=== PATIENT | male | born 1955 | race Caucasian/White ===

== ENCOUNTER 2019-06-05 06:16 | Emergency (ER) | payer BC, SELFPAY ==
[2019-06-05 06:18] VITALS: BP 92/68; PULSE 70; RESP 14; TEMP 36.2; O2SAT 95; BMI 22.4
--- NOTE | 2019-06-05 06:37 | EKG12_ITS ---
Test Reason : SYNCOPE Blood Pressure : / mmHG Vent. Rate : 065 BPM Atrial Rate : 065 BPM P-R Int : 150 ms QRS Dur : 102 ms QT Int : 428 ms P-R-T Axes : 054 015 049 degrees QTc Int : 445 ms Normal sinus rhythm Normal ECG Confirmed by ROSANNA MCARTHUR, AD ([id number]), script editor SANFORD VILLANUEVA ([id number]) on 06/07/2019 9:01:51 AM Referred By: PAPITO Confirmed By:AD MARTE MD
--- NOTE | 2019-06-05 06:37 | ED.DCSUM_ITS ---
History of Present Illness Chief Complaint: Syncope Narrative: This patient is a 64-year-old male who presents with near syncope. He states he got up to go to the bathroom and felt dizzy and became diaphoretic. He fell. He did not completely lose consciousness. There was no associated chest pain or shortness of breath. Currently he is completely asymptomatic. He states he had one prior similar episode several years ago which was ultimately attributed to dehydration and stress. He has had no recent illness. He denies fevers vomiting diarrhea. He has had normal oral intake. He is on 2 medications for hypertension. He states that when he was prescribed those he was much heavier and has lost a lot of weight so thinks his current medications may just be too much. Past Medical History - Allergies and Home Meds Allergies/Adverse Reactions: Allergies No Known Allergies Allergy (Verified 06/05/19 06:18) Primary Care Physician: Gerard Penny MD [Primary Care Provider] - Past Medical History: - - Hypertension Smoking Status: Never smoker - Family History Maternal Family History: Reports: Heart Disease Review of Systems All systems negative except as indicated General: Reports: Sweats. Denies: Fever Cardiovascular: Reports: - - Dizziness/near syncope. Denies: Chest pain Respiratory: Denies: Dyspnea Gastrointestinal: Denies: Nausea, Vomiting Musculoskeletal: Denies: Myalgias, Arthralgias Skin: Denies: Rash Neurological: Denies: Headache Physical Exam Vital Signs/Narrative: Vital Signs Temp Pulse Resp BP Pulse Ox 06/05/19 06:18 97.2 F L 70 14 92/68 95 Inital Vital Signs reviewed: Yes General: Well nourished, Well developed Head: Normocephalic Eyes: EOMI ENT: Moist mucous membranes Neck: Supple Cardiovascular: Regular rate, Regular rhythm Respiratory: No distress, CTA bilaterally Abdomen: Soft, Nontender Skin: Normal color Neurological: Alert Psychological: Normal affect Diagnostic/Tx/Re-eval Laboratory Results 06/05/19 06/05/19 06:20 06:20 WBC 8.6 RBC 4.99 Hgb 14.1 Hct 43.2 MCV 86.6 MCH 28.3 MCHC 32.6 RDW Std Deviation 45.2 H RDW Coeff of Deny 14.4 Plt Count 225 MPV 9.7 Immature Gran % (Auto) 0.100 Neut % (Auto) 36.1 L Lymph % (Auto) 51.2 H [place] % (Auto) 6.7 Eos % (Auto) 4.7 Baso % (Auto) 1.2 H Absolute Neuts (auto) 3.1 Absolute Lymphs (auto) 4.38 Nucleated RBC % 0 Sodium 145 Potassium 3.8 Chloride 111 H Carbon Dioxide 25.0 Anion Gap 9 BUN 11 Creatinine 0.80 Estim Creat Clear Calc 100.39 Est GFR (MDRD) Af Amer 125 Est GFR (MDRD) Non-Af 103 BUN/Creatinine Ratio 13.7 Glucose 123 H Calcium 8.4 L Troponin I < 0.015 - Medical Decision Making Labs are normal. EKG showed normal sinus rhythm at a rate of 65 with no ischemic changes. Patient had a similar presentation in 2014 although he had multiple syncopal episodes at that time. He was admitted here at laboratory studies and stress testing all of which were normal. Currently he is completely asymptomatic. His orthostatic vital signs were negative. Patient does note that since being started on the nifedipine and atenolol he has lost a significant amount of weight and believes that this is likely medication related and I do think this is the most likely explanation. I put a page out to Dr. Portillo who is covering for the patient's primary care physician. And her back yet but will have patient stop his nifedipine for now. Patient was advised to follow-up in the office. He understands return for new or worsening symptoms. He was able to ambulate without any difficulty or recurrence of symptoms. ED Disposition - Plan for ED Patient: Disposition: Home or Assisted Living Diagnosis: Near syncope Instructions: NEAR SYNCOPE, Unknown Referrals: Gerard Penny MD [Primary Care Provider] - Additional Instructions: Stop nifedepine. Follow up with your doctor as soon as possible. Return for new or worsening symptoms.
[2019-06-05] MEDS: 0.9% Normal Saline 1,000 ML 999 ML IV (06:59)
[2019-06-05 07:02] VITALS: BP 105/64; BP 108/67; BP 115/76; PULSE 70; PULSE 75; PULSE 80
[2019-06-05 07:03] LABS: Absolute Lymphocyte Count 4.38 X10^3/uL (0.83-4.51); Absolute Neutrophil Count 3.1 X10^3/uL (2.0-7.7); Basophil% 1.2 % (0-1); Eosinophils% 4.7 % (0-5); Hematocrit 43.2 % (40-54); Hemoglobin 14.1 g/dL (13.0-16.5); Lymphocyte # 4.38 X10^3/ul (4.0); Lymphocyte % 51.2 % (19-41); Mean Corp Hgb Conc 32.6 g/dL (32-36); Mean Corpuscular Hgb 28.3 pg (27.0-32.0); Mean Corpuscular Volume 86.6 fL (80-94); Mean Platelet Vol. 9.7 fl (6.2-12.0); Monocyte# 0.57 X10^3/uL; Monocyte% 6.7 % (0-10); NRBC Flagged by Analyzer 0 % (0-5); Neutrophil # 3.09 X10^3/uL (2.7-7.7); Neutrophil % 36.1 % (47-70); Platelet Count 225 K/mm3 (150-450); RBC Distribution Width CV 14.4 % (11.6-14.6); RBC Distribution Width SD 45.2 fl (35.1-43.9); Red Blood Count 4.99 M/mm3 (4.6-6.2); White Blood Count 8.6 K/mm3 (4.4-11.0)
[2019-06-05 07:20] LABS: Anion Gap 9 (5-15); BUN 11 mg/dL (7-18); BUN/Creat Ratio 13.7 RATIO (10-20); Calcium,Total 8.4 mg/dL (8.5-10.1); Chloride 111 mmol/L (98-107); EST Glomerular Filtration Rate 103 mL/min (>60); Est Glom Filt Rate - Afr Amer 125 mL/min (>60); Estimated Creatinine Clearance 100.39 ml/min; Glucose 123 mg/dL (74-106); Potassium 3.8 mmol/L (3.5-5.1); Sodium Level 145 mmol/L (136-145)
[2019-06-05 07:58] VITALS: BP 122/77; PULSE 64; RESP 15; O2SAT 97
== END 2019-06-05 07:59 | disposition home or self-care (01) ==
PROVIDERS: Emergency Provider Emergency Medicine; Family Provider Family Medicine; PCP Family Medicine
DX: R55 Syncope and collapse (principal); I10 Essential (primary) hypertension; Z79.899 Other long term (current) drug therapy
CPT/HCPCS: 80048; 84484; 85025; 93005; 96360; 99285; J7030; A4216

== ENCOUNTER 2019-08-02 10:04 | Inpatient (IN) | payer BC, SELFPAY ==
[2019-07-21 12:59] VITALS: BP 139/87; PULSE 53; RESP 16; TEMP 36.6; O2SAT 98; BMI 22.0
[2019-07-21 13:47] LABS: Absolute Neutrophil Count 4.2 X10^3/uL (2.0-7.7); Basophil# 0.08 X10^3/uL; Basophil% 1.1 % (0-1); Eosinophil# 0.08 X10^3/uL; Eosinophils% 1.1 % (0-5); Hematocrit 44.9 % (40-54); Hemoglobin 14.6 g/dL (13.0-16.5); Lymphocyte % 35.7 % (19-41); Mean Corp Hgb Conc 32.5 g/dL (32-36); Mean Corpuscular Hgb 28.3 pg (27.0-32.0); Mean Corpuscular Volume 87.2 fL (80-94); Mean Platelet Vol. 9.9 fl (6.2-12.0); Monocyte# 0.51 X10^3/uL; Monocyte% 6.7 % (0-10); NRBC Flagged by Analyzer 0 % (0-5); Neutrophil # 4.19 X10^3/uL (2.7-7.7); Neutrophil % 55.3 % (47-70); Platelet Count 245 K/mm3 (150-450); RBC Distribution Width CV 14.3 % (11.6-14.6); RBC Distribution Width SD 45.2 fl (35.1-43.9); Red Blood Count 5.15 M/mm3 (4.6-6.2); White Blood Count 7.6 K/mm3 (4.4-11.0)
[2019-07-21 14:19] LABS: Anion Gap 5 (5-15); BUN 13 mg/dL (7-18); BUN/Creat Ratio 16.1 RATIO (10-20); Calcium,Total 9.7 mg/dL (8.5-10.1); Chloride 105 mmol/L (98-107); Creatinine, Serum 0.81 mg/dL (0.70-1.30); EST Glomerular Filtration Rate 102 mL/min (>60); Est Glom Filt Rate - Afr Amer 124 mL/min (>60); Estimated Creatinine Clearance 97.17 ml/min; Glucose 98 mg/dL (74-106); Potassium 4.8 mmol/L (3.5-5.1); Sodium Level 138 mmol/L (136-145)
[2019-08-02] VITALS (13 sets, daily range): BP systolic 92–136; BP diastolic 54–89; PULSE 48–67; RESP 16–18; TEMP 35.7–36.6; O2SAT 98–100; BMI 22.0
[2019-08-02 09:05] LABS: Bedside Glucose 92 mg/dL (70-110)
[2019-08-02] MEDS: Lactated Ringers 1,000 ML 100 ML IV ×2 (09:10→14:37)
[2019-08-02] MEDS: Lactated Ringers 1,000 ML 999 ML IV (09:11)
[2019-08-02] MEDS: Magnesium Sulfate 4gm/100mL 4 GM/100 ML IV.SOLN. IV (09:12)
[2019-08-02] MEDS: Gabapentin 600 MG Tablet PO (09:17)
[2019-08-02] MEDS: Acetaminophen 500 MG Tablet 1000 MG PO ×3 (09:17→20:48)
[2019-08-02] MEDS: Cefazolin 2 GM in 0.9% Normal Saline 100 ML IV (10:10)
--- NOTE | 2019-08-02 10:15 | KNEE_PTH ---
PATIENT: NASIM GAVIN LOC: MS3 U#:[id number] AGE/SX: 64/M ROOM: MS305 RE08/02/[address]: Dr. Deyvi Drummond DO : 1955 BED: 1 DIS: 08/04/2019 SPEC #: [id number] RECD: 08/02/19 12:17 STATUS: NOA REQ #: [id number] FREDIS: 08/02/19 10:[address]: Deyvi Drummond DEPT: SURGICAL PATHOLOGY RECD BY: Adriana Onofre ENTERED: 08/02/19 13:38 SP TYPE: TOTAL KNEE OTHR DR: Dr. Gerard Penny MD Tissues: Knee, NOS Procedures: Decalcification bone/plaque Surgery Specimen Level IV HEADER OPERATION: ERAS, total knee replacement PRE-OP DIAGNOSIS: Unilateral post traumatic osteoarthritis TISSUE SUBMITTED: Bone and soft tissue, left knee MICROSCOPIC DIAGNOSIS Bone of left knee, total knee resection: Severe degenerative joint disease. AM:ritu 08/05/19 MICROSCOPIC DESCRIPTION Slides are reviewed. GROSS DESCRIPTION Received is one container designated bone and soft tissue left knee. The specimen consists of multiple fragments of -yellow bone measuring in aggregate 11 x 11 x 3 cm. No soft tissue is identified. A number of bony fragments contain articular surfaces consistent with tibial plateau and femoral condyle and displaying prominent osteophyte formation, eburnation, and bone erosion. Sustainability Coach sections are submitted one cassette after decalcification. / SJ:ritu 08/02/19 TC:5 CPT: 48762, 35065
--- NOTE | 2019-08-02 11:21 | PCM.OPRPT ---
Report of Operation Date of Procedure: 08/02/19 Pre-Operative Diagnosis: OA left knee Post-Operative Diagnosis: same Surgery/Procedure Performed:: Left TKR Description of Surgical Findings:: Primary Surgeon/Physician: Deyvi Drummond chef instructor: Faisal Grewal PA-C chef instructor: Pre-Operative Diagnosis: OA left knee Post-Operative Diagnosis: same Surgery/Procedure Performed: Left TKR Estimated Blood Loss: 25 cc Specimen's Removed: bone Type of Anesthesia: spinal ASA Class: 2 Implants: [Villa Triathlon size 7 press fit CR femur, size 7 press-fit tibia, 9 mm polyethylene, 32 mm press-fit patella] Indications: Patient has severe end-stage osteoarthritis diagnosed via x-rays in the knee. They have failed all forms of conservative measures including activity modification, injections, anti-inflammatories, use of assistive device. The patient has pain that affects on a daily basis and prevents him from doing things that they enjoyed. They have elected to undergo the above procedure. The risks of the procedure were discussed at length and their questions were answered. Procedure Description: The patient was greeted in the preoperative area. The [left ] knee was then marked with a surgical marker. Patient was then taken to or [address] 2. They were administered a dose of antibiotics as well as tranexamic acid. Once adequate anesthesia was obtained and airway was secured to placed in supine position on the operating room table. A well-padded tourniquet was placed on the affected extremity. Leg was then prepped and draped in the usual sterile fashion from the knee down. Ioban was used on the skin. Surgical timeout was then performed and confirmed with all present. Six-inch Esmarch was used to examine the limb and tourniquet was then inflated to 250 mmHg. A longitudinal incision was then planned and carried out in the anterior aspect of the knee. The dissection was then carried the length of the incision the extensor mechanism was identified. Standard medial parapatellar arthrotomy was then performed revealing severe eburnation of bone and periarticular osteophytes. There is complete loss of cartilage especially in the medial compartment with varus alignment. Anterior fat pad was removed for visualization purposes and the anterior medial aspect of the tibia was skeletonized for exposure to the knee. The knee was then flexed the patella was inverted. Opening reamer was then used in the femur approximately 1 cm anterior to the attachment of the PCL. The intramedullary valgus wand was then placed in the femur set at 5? of valgus. The distal femoral cutting jig was then applied to the femur with anticipated resection of approximately 8 mm. This was then made with a oscillating saw. The sizing guide was then placed referencing off the posterior condyles and also reference off the epicondylar axis. This was measured and the appropriate size 4-in-1 cutting jig was then applied to the distal femur. Anterior posterior cuts were made followed by the anterior and posterior chamfer cuts. These bony pieces and fragments were removed and placed on the back table. Posterior retractor was then utilized and the tibia was subluxed anteriorly. Intramedullary tibial alignment jig was then applied to the tibia referencing off the medial one third of the tibial tubercle the anterior tibial spine the middle aspect of the tibiotalar joint. Also reference off patient's [place] slope. The tibial cutting jig was then pinned with anticipated resection of 2 mm off of the deficient medial tibial condyle. This cut was made with the oscillating saw. Once this was complete a laminar liability claims representative was utilized in both medial lateral meniscus were removed and a posterior capsular osteophytes were also removed. Posterior capsule release was performed in the posterior capsule as well as the geniculate arteries are treated with the aqua Charo. The tibia was incised and the appropriate sized tibial tray was then pinned. The femoral trial was then placed and the knee was trialed. Full flexion-extension were easily achieved. The knee seemed to balance quite nicely. Any remaining osteophytes were removed at this time. Once this was complete the patella was everted and the [place] patella reaming device was then utilized the patella was then placed in the appropriate jig and reamer was then used to remove approximately 9 mm of the undersurface of the patella. A soft tissue remaining was in the way was removed and patella trial was then placed listed maintain excellent tracking using the no thumbs technique. The tibial tray at this point was punched to accommodate the fins of the final implant. The trial components were removed and the knee was copiously irrigated. Did use a cocktail of injection for postoperative pain control. The final components were then impacted in the standard fashion. The tourniquet was deflated and hemostasis was perfect with Bovie cautery as well as the aqua Manus. Needle is once again trialed with different size polyethylenes to ensure the full range of motion was achieved as well as excellent balancing ligamentously was achieved. At this point the knee was copiously irrigated. Final implant was then inserted locking mechanism was engaged and confirmed to be locked. The arthrotomy was then closed with #1 Vicryl aggravate type fashion interrupted. Subcutaneous tissue was closed with 0 Vicryl and surgical yovani were placed in the skin. A occlusive silver impregnated dressing was then applied followed by well-padded sterile dressing secured with an Jono wrap. The patient was taken to the PACU in stable condition. No complications known at this time. Postoperatively we will maintain standard total knee postoperative protocol. The use of the physician medical clerical assistant was integral during this procedure. They assisted with positioning placement of the tourniquet retracting closure and placement of the dressing. The procedure would have been much more difficult without their expertise and assistance chef instructor: Faisal Grewal Type of Anesthesia:: Spinal Anesthesiologist: Boni Esposito Specimen's removed: bone - Admit VTE Documentation VTE Present on Admission: No VTE Mechan Device Prophylaxis: SCD's, Thigh High MINDI Hose VTE Pharm Prophylaxis ordered?: Yes
[2019-08-02] MEDS: Cefazolin 1 GM/50 ML BAG IV (17:19)
[2019-08-02] MEDS: Senna/Docusate Sodium 1 Tablet 2 TABLET PO (20:48)
[2019-08-02] MEDS: oxyCODONE 5 MG Tablet PO ×2 (22:41→23:58)
[2019-08-03] VITALS (8 sets, daily range): BP systolic 87–123; BP diastolic 51–95; PULSE 57–115; RESP 16–20; TEMP 36.6–38.2; O2SAT 94–97
[2019-08-03] MEDS: Cefazolin 1 GM/50 ML BAG IV (01:25)
[2019-08-03] MEDS: Acetaminophen 500 MG Tablet 1000 MG PO ×3 (05:02→21:13)
--- NOTE | 2019-08-03 05:18 | NURSING ---
PT NOTED TO BE CONFUSED OVERNIGHT. CONTINUES TO BELIEVE HE IS AT HOME IN SPITE OF FREQUENT REORIENTATION. CONTINUES TO CHOOSE NOT TO CALL FOR ASSISTANCE WHEN GETTING OUT OF BED. REPEATEDLY THOUGHT IT WAS TIME FOR BREAKFAST OVERNIGHT. ASKING TO USE RESTROOM WITHIN 5M OF BEING TAKEN TO RESTROOM; STATES I FORGOT I ALREADY WENT. RE-ORIENTED EACH TIME. WILL CONTINUE TO MONITOR.
[2019-08-03 06:20] LABS: Hematocrit 37.4 % (40-54); Hemoglobin 11.7 g/dL (13.0-16.5); Mean Corp Hgb Conc 31.3 g/dL (32-36); Mean Corpuscular Hgb 27.7 pg (27.0-32.0); Mean Corpuscular Volume 88.4 fL (80-94); Mean Platelet Vol. 9.7 fl (6.2-12.0); Platelet Count 197 K/mm3 (150-450); RBC Distribution Width CV 14.6 % (11.6-14.6); RBC Distribution Width SD 46.4 fl (35.1-43.9); Red Blood Count 4.23 M/mm3 (4.6-6.2)
[2019-08-03 06:52] LABS: Anion Gap 3 (5-15); BUN 15 mg/dL (7-18); BUN/Creat Ratio 20.1 RATIO (10-20); Calcium,Total 8.2 mg/dL (8.5-10.1); Chloride 110 mmol/L (98-107); Creatinine, Serum 0.75 mg/dL (0.70-1.30); EST Glomerular Filtration Rate 112 mL/min (>60); Est Glom Filt Rate - Afr Amer 136 mL/min (>60); Estimated Creatinine Clearance 104.95 ml/min; Glucose 104 mg/dL (74-106); Potassium 4.7 mmol/L (3.5-5.1); Sodium Level 140 mmol/L (136-145)
--- NOTE | 2019-08-03 07:57 | PN.ORTHO_ITS ---
Subjective: Patient sitting at bedside, states pain is very well managed. States he does have increasing pain from today. Patient denies chest pain, shortness of breath, calf pain, nausea vomiting. Patient has no other complaints ready for discharge home today. Objective: Patient sitting comfortably in the chair next to the bed. No respiratory distress. Speaking full sentences. Patient's dressing is clean dry intact. Negative signs and symptoms of DVT. Patient has good plantar flexion dorsiflexion of the ankle and foot of the operative leg. Patient is hypertensive, did have a drop in blood pressure and increase in pulse by approximately 30 bpm coming from a sitting standing position. Patient however remained asymptomatic. Patient labs are otherwise normal limits - Physical Exam Vitals/I&O's: Vital Signs Temp Pulse Resp BP Pulse Ox 98.2 F 57 L 20 H 107/56 L 94 08/03/19 06:50 08/03/19 07:40 08/03/19 06:50 08/03/19 07:40 08/03/19 06:50 Oxygen Flow Rate (L/min) 6 Oxygen Delivery Method Room Air Weight: 73.6 kg Body Mass Index (BMI) 22.0 Orthostatic Vital Signs Start: 08/03/19 07:40 Freq: q24h Status: Active Protocol: Activity Type Activity Date Activity User E-Sign Co-Sign Detail Recorded Client Recorded Date Recorded By Document 08/03/19 07:40 [facility] [id number] 08/03/19 07:45 [facility] 08/03/19 07:40 Orthostatic Vitals Standing -Blood Pressure (90/60-120/80) 87/58 L -Extremity Use Left Arm -Pulse Rate (60-100) 97 Sitting -Blood Pressure (90/60-120/80) 123/67 H -Extremity Use Left Arm -Pulse Rate (60-100) 84 Lying -Blood Pressure (90/60-120/80) 107/56 L -Extremity Use Left Arm -Pulse Rate (60-100) 57 L Intake and Output for Last 24 Hours 08/01/19 08/02/19 08/03/19 23:59 23:59 23:59 Intake Total 2583.33 / 2583.33 1892.5 / 1892.5 Balance 2583.33 / 2583.33 1892.5 / 1892.5 General: Alert, Oriented x3, Cooperative HEENT: PERRLA Oral: Moist Mucosa Cardiovascular: Regular rate Neurological: Cranial nerves II-XII grossly intact Psych/Mental Status: Normal Affect, Alert and oriented to time, place, person, mood and affect Laboratory Results 08/02/19 08:55: POC Glucose 92 08/03/19 05:40: WBC 11.0, RBC 4.23 L, Hgb 11.7 L, Hct 37.4 L, MCV 88.4, MCH 27.7, MCHC 31.3 L, RDW Std Deviation 46.4 H, RDW Coeff of Deny 14.6, Plt Count 197, MPV 9.7 08/03/19 05:40: Sodium 140, Potassium 4.7, Chloride 110 H, Carbon Dioxide 27.0, Anion Gap 3 L, BUN 15, Creatinine 0.75, Estim Creat Clear Calc 104.95, Est GFR (MDRD) Af Amer 136, Est GFR (MDRD) Non-Af 112, BUN/Creatinine Ratio 20.1 H, Glucose 104, Calcium 8.2 L Current Medications Acetaminophen (Tylenol) 1,000 mg PO Q8 PENDING SALE TO [facility] Last Admin: 08/03/19 05:02 Dose: 1,000 mg Documented by: Aspirin (Aspirin) 325 mg PO BID PENDING SALE TO [facility] Atenolol (Tenormin (Beta Marco)) 50 mg PO DAILY PENDING SALE TO [facility] Sodium Chloride () 1,000 mls @ 1,000 mls/hr IV .Q1H PENDING SALE TO [facility] Stop: 08/03/19 08:54 Insulin Human Lispro (Humalog Kwikpen (Bkc)) 1 - 6 unit SC Q4H PRN PRN; Protocol PRN Reason: BG>/= 180, SEE PROTOCOL Lactobacillus Acidophilus (Acidophilus) 1 tablet PO DAILY PENDING SALE TO [facility] Multivitamins/Minerals (Multivitamin With Minerals) 1 tablet PO DAILY@0800 PENDING SALE TO [facility] Ondansetron HCl (Zofran) 4 mg IV Q8H PRN PRN PRN Reason: NAUSEA Oxycodone HCl (Oxyir) 5 - 10 mg PO Q4H PRN PRN PRN Reason: Pain Score 4-10/10 Last Admin: 08/02/19 23:58 Dose: 5 mg Documented by: Promethazine HCl (Phenergan) 12.5 mg IM Q6H PRN PRN; Protocol PRN Reason: NAUSEA/VOMITING Senna/Docusate Sodium (Senokot-S, Ginger-Colace) 2 tablet PO BID CEHLSIE Last Admin: 08/02/19 20:48 Dose: 2 tablet Documented by: Sodium Chloride () 10 - 40 ml IV UD PRN PRN Reason: SALINE FLUSH Medical Necessity - Tobacco Use Smoking Status: Never smoker Tobacco Use: Non-smoker Assessment/Plan All Active Problems Syncope (Acute) Status post left total knee arthroplasty Plan 1. Continue all pain medications as prescribed 2. Weight-bear as tolerated with walker 3. Aspirin 3 and 25 mg 1 p.o. every 12 hours x30 days for postop DVT prophylaxis 4. Encourage incentive spirometry 5. Discharge home today 6. Follow-up as scheduled, see pink sheet 7. Patient will continue with outpatient physical therapy at [facility] [place]
[2019-08-03] MEDS: oxyCODONE 5 MG Tablet PO ×2 (08:00→13:55)
[2019-08-03] MEDS: Senna/Docusate Sodium 1 Tablet 2 TABLET PO ×2 (08:01→21:14)
[2019-08-03] MEDS: Multivitamins,Ther W-Minerals Tablet 1 TABLET PO (08:01)
[2019-08-03] MEDS: Aspirin 325 MG Tablet PO ×2 (08:02→21:13)
[2019-08-03] MEDS: 0.9% Normal Saline 1,000 ML 1000 ML IV (08:06)
--- NOTE | 2019-08-03 08:08 | PCM.DC.TKR ---
Discharge Diet: No Restrictions Discharge Activity: May Not Drive, May Shower, Use Walker May shower in (days): 3 Ice area for (Minutes): 20 - each hour while awake. Weight Bearing Status: Weight bearing as tolerated Elevate: Operative Extremity Additional Activity Instructions:: Wear elastic stockings for 2 weeks after your surgery. Call your doctor if your incision/area has: Continuous Slow Oozing, Sudden Increased Bleeding, Increased Pain/ Swelling, Increased Redness, Foul Smelling Discharge Call your doctor if you observe: Fever of 101 or Higher, Coldness, Increased Pain - in extremity, Numbness or Tingling, Change in Color, Calf discomfort, Uncontrolled pain Change Dressing in (Days):: 0 - and daily as needed. Remove Dressing in (days):: 8 Cleanse incision/area with: Soap & Water Allergies/Adverse Reactions: Allergies No Known Allergies Allergy (Verified 08/02/19 08:48) Medications to take at Discharge Atenolol [Tenormin (beta anna)] 50 mg PO DAILY 11/28/14 L.acidoph,Paracasei, B.lactis [Probiotic] 1 ea PO DAILY 07/21/19 Multivit-Min/FA/Lycopen/Lutein [Centrum Silver Tablet] 1 ea PO DAILY 07/21/19 Pass Christian-3/Dha/Epa/Fish Oil [Fish Oil 1,000 mg Softgel] 1 ea PO DAILY 07/21/19 Acetaminophen [Tylenol] 1,000 mg PO Q8 #90 tab 08/03/19 Aspirin 325 mg PO BID #60 tab 08/03/19 Oxycodone [Oxyir] 5 - 10 mg PO Q4H PRN PRN 7 Days #60 tab 08/03/19 The following prescriptions were given: Aspirin 325 mg PO BID #60 tab Prescription Printed Oxycodone [Oxyir] 5 - 10 mg PO Q4H PRN PRN 7 Days #60 tab PRN Reason: Pain Score 4-10/10 Prescription Printed Acetaminophen [Tylenol] 1,000 mg PO Q8 #90 tab Prescription Printed Primary Care Physician: Gerard Penny MD [Primary Care Provider] - Test Results: Test results from this visit will be discussed in further detail at your follow-up appointment, if applicable. Please Follow Up With: Faisal Grewal PA-C When: as scheduld, see pink sheet
--- NOTE | 2019-08-03 10:10 | CASEMGMT ---
ARNOLDO MUNOZ Face to Face with patient for initial transition planning/care coordination assessment. RN ALEXANDER introduced self and role at [facility]. Patient sitting in chair, alert and oriented. Patient willing to participate in assessment and is able to answer all questions appropriately. Care providers, pharmacy, and demographics verified. Patient wishes to discharge home and has outpatient therapy setup with [facility] for Friday. Patient states he has no further needs or concerns at this time. CM to follow for discharge planning needs that may arise. PCP: Zohaib Specialists: Janet Drummond Pharmacy: [facility] Insurance: [employer] Prescription Benefit: ues Living Will/HPOA: none LNOK: Living Arrangements: Patient lives with in 2 story home with bed and bath on first floor. 3 steps with railing to enter the home. Transportation: DME/HHC: Patient has raised toilet, cane, crutches, walker at home. Patient has outpatient therapy scheduled for Friday at [facility]. Disposition Plan: Patient to discharge home with outpatient therapy, family support, and follow-up plans in place. Connie ACEVES, RN, CM
--- NOTE | 2019-08-03 10:11 | NURSING ---
These orthos were taken after 1L NS bolus.
--- NOTE | 2019-08-03 15:01 | NURSING ---
Notified Julito Grewal of pt's vital signs/temp 100.8. Pts concerned about his confusion/forgetfulness, stating she is afraid if he goes home today, he may get up in the middle of the night & fall. Colin made aware. New orders received.
--- NOTE | 2019-08-03 15:10 | RAD_ITS ---
STUDY: X-RAY CHEST REASON FOR EXAM: Male, 64 years old. Fever TECHNIQUE: Single frontal view of the chest. COMPARISON: 11/28/2014. FINDINGS: Cardiac silhouette unremarkable. Pulmonary vascularity unremarkable. Aorta unremarkable. Similar-appearing calcified nodule at the right base/liver. No focal airspace opacities. No pleural effusions. Upper abdomen unremarkable. Osseous structures intact. No pneumothorax. RAD/Chest 1 View (Portable) IMPRESSION: No acute cardiopulmonary findings. Electronically Signed: Jarett Le, at 17:00 EST Tel , Service support ,
[2019-08-03 15:50] LABS: Absolute Lymphocyte Count 1.56 X10^3/uL (0.83-4.51); Absolute Neutrophil Count 8.9 X10^3/uL (2.0-7.7); Basophil# 0.04 X10^3/uL; Basophil% 0.3 % (0-1); Eosinophil# 0.03 X10^3/uL; Eosinophils% 0.3 % (0-5); Hematocrit 32.7 % (40-54); Hemoglobin 10.6 g/dL (13.0-16.5); Lymphocyte # 1.56 X10^3/ul (4.0); Lymphocyte % 13.6 % (19-41); Mean Corp Hgb Conc 32.4 g/dL (32-36); Mean Corpuscular Hgb 28.5 pg (27.0-32.0); Mean Corpuscular Volume 87.9 fL (80-94); Mean Platelet Vol. 9.6 fl (6.2-12.0); Monocyte# 0.92 X10^3/uL; NRBC Flagged by Analyzer 0 % (0-5); Neutrophil % 77.5 % (47-70); Platelet Count 172 K/mm3 (150-450); RBC Distribution Width CV 14.3 % (11.6-14.6); RBC Distribution Width SD 45.5 fl (35.1-43.9); Red Blood Count 3.72 M/mm3 (4.6-6.2); White Blood Count 11.5 K/mm3 (4.4-11.0)
[2019-08-03 16:02] LABS: Anion Gap 5 (5-15); BUN 15 mg/dL (7-18); BUN/Creat Ratio 21.6 RATIO (10-20); Chloride 107 mmol/L (98-107); EST Glomerular Filtration Rate 122 mL/min (>60); Est Glom Filt Rate - Afr Amer 148 mL/min (>60); Estimated Creatinine Clearance 112.44 ml/min; Glucose 136 mg/dL (74-106); Potassium 4.2 mmol/L (3.5-5.1); Sodium Level 138 mmol/L (136-145)
--- NOTE | 2019-08-03 16:02 | NURSING ---
Colin Grewal called in for update. Informed him labs/CXR has been completed but not resulted yet. Pt still concerned about his confusion. New orders received.
[2019-08-03] MEDS: traMADol 50 MG Tablet PO (18:21)
[2019-08-03 20:19] LABS: Bacteria 0 SEEN /hpf (None Seen)
[2019-08-03 20:21] LABS: Color, Urine Yellow (Yellow); Glucose, Dipstick Normal (Normal); Ketone-Dipstick 15 mg/dl (Negative); Leukocyte Esterase-Dipstick Negative /ul (Negative); Nitrite-Dipstick Negative (Negative); Occult Blood-Urine Negative /ul (Negative); Protein-Dipstick Negative (Negative); Urine Bilirubin Dipstick Negative (Negative); Urine Clarity Clear (Clear); Urine Urobilinogen Normal (Normal)
[2019-08-03 20:58] LABS: Red Blood Cells-Urine 0-5 SEEN /hpf (0-5); White Blood Cells 0-5 SEEN /hpf (0-5)
[2019-08-03 21:02] LABS: Squamous Epithelial Cells - UA 0-5 SEEN /hpf (0-5)
[2019-08-03 21:06] LABS: Mucous, Urine RARE /hpf (<or=2+)
[2019-08-04 03:15] VITALS: BP 128/73; PULSE 97; RESP 18; TEMP 36.7; O2SAT 95
[2019-08-04] MEDS: Acetaminophen 500 MG Tablet 1000 MG PO ×2 (05:10→12:44)
[2019-08-04] MEDS: Senna/Docusate Sodium 1 Tablet 2 TABLET PO (07:35)
[2019-08-04] MEDS: Multivitamins,Ther W-Minerals Tablet 1 TABLET PO (07:35)
[2019-08-04] MEDS: Aspirin 325 MG Tablet PO (07:35)
[2019-08-04 07:36] VITALS: BP 116/73; PULSE 97; RESP 18; TEMP 36.8; O2SAT 94
--- NOTE | 2019-08-04 11:16 | PN.ORTHO_ITS ---
Subjective: Patient sitting at bedside with his at his side. Patient, as well as his feels he is much more alert and thinking more clearly today. Patient feels his pain is well-managed at this time. Patient denies chest pain, shortness of breath, calf pain, nausea vomiting. As well as feels that he is ready to be discharged home and will continue with outpatient therapy - Physical Exam Vitals/I&O's: Vital Signs Temp Pulse Resp BP Pulse Ox 98.3 F 97 18 116/73 94 08/04/19 07:36 08/04/19 07:36 08/04/19 07:36 08/04/19 07:36 08/04/19 07:36 Oxygen Flow Rate (L/min) 6 Oxygen Delivery Method Room Air Weight: 73.6 kg Body Mass Index (BMI) 22.0 Orthostatic Vital Signs Start: 08/03/19 07:40 Freq: q24h Status: Active Protocol: Activity Type Activity Date Activity User E-Sign Co-Sign Detail Recorded Client Recorded Date Recorded By Document 08/03/19 13:40 [facility] [id number] 08/03/19 13:48 [facility] 08/03/19 13:40 Orthostatic Vitals Standing -Blood Pressure (90/60-120/80) 104/79 -Extremity Use Left Arm -Pulse Rate (60-100) 79 Sitting -Blood Pressure (90/60-120/80) 116/81 H -Extremity Use Left Arm -Pulse Rate (60-100) 101 H Lying -Blood Pressure (90/60-120/80) 112/62 -Extremity Use Left Arm -Pulse Rate (60-100) 94 Intake and Output for Last 24 Hours 08/02/19 08/03/19 08/04/19 23:59 23:59 23:59 Intake Total 2583.33 / 2583.33 4332.5 / 4332.5 200 / 200 Balance 2583.33 / 2583.33 4332.5 / 4332.5 200 / 200 General: Alert, Oriented x3 HEENT: PERRLA Oral: Moist Mucosa Neurological: Cranial nerves II-XII grossly intact Psych/Mental Status: Normal Affect, Alert and oriented to time, place, person, mood and affect Microbiology Past 72 Hours 08/03/19 15:58 Urine, Clean Catch Urine Culture - Preliminary Culture exhibits no growth. Laboratory Results 08/03/19 15:35: WBC 11.5 H, RBC 3.72 L, Hgb 10.6 L, Hct 32.7 L, MCV 87.9, MCH 28.5, MCHC 32.4, RDW Std Deviation 45.5 H, RDW Coeff of Deny 14.3, Plt Count 172, MPV 9.6, Immature Gran % (Auto) 0.300, Neut % (Auto) 77.5 H, Lymph % (Auto) 13.6 L, Donley % (Auto) 8.0, Eos % (Auto) 0.3, Baso % (Auto) 0.3, Absolute Neuts (auto) 8.9 H, Absolute Lymphs (auto) 1.56, Nucleated RBC % 0 08/03/19 15:35: Sodium 138, Potassium 4.2, Chloride 107, Carbon Dioxide 26.0, Anion Gap 5, BUN 15, Creatinine 0.70, Estim Creat Clear Calc 112.44, Est GFR (MDRD) Af Amer 148, Est GFR (MDRD) Non-Af 122, BUN/Creatinine Ratio 21.6 H, Gluc ose 136 H, Calcium 8.0 L 08/03/19 15:58: Urine Color Yellow, Urine Clarity Clear, Urine pH 5.0, Ur Specific [place] 1.020, Urine Protein Negative, Urine Glucose (UA) Normal, Urine Ketones 15 H, Urine Occult Blood Negative, Urine Nitrite Negative, Urine Bilirubin Negative, Urine Urobilinogen Normal, Ur Leukocyte Esterase Negative, Urine RBC 0-5 SEEN, Urine WBC 0-5 SEEN, Ur Squamous Epith Cells 0-5 SEEN, Urine Bacteria 0 SEEN, Urine Mucus RARE Current Medications Acetaminophen (Tylenol) 1,000 mg PO Q8 [facility] Last Admin: 08/04/19 05:10 Dose: 1,000 mg Documented by: Aspirin (Aspirin) 325 mg PO BID [facility] Last Admin: 08/04/19 07:35 Dose: 325 mg Documented by: Atenolol (Tenormin (Beta Marco)) 50 mg PO DAILY [facility] Insulin Human Lispro (Humalog Kwikpen (Bkc)) 1 - 6 unit SC Q4H PRN PRN; Protocol PRN Reason: BG>/= 180, SEE PROTOCOL Lactobacillus Acidophilus (Acidophilus) 1 tablet PO DAILY [facility] Last Admin: 11/20/19 07:35 Dose: 1 tablet Documented by: Multivitamins/Minerals (Multivitamin With Minerals) 1 tablet PO DAILY@0800 [facility] Last Admin: 08/04/19 07:35 Dose: 1 tablet Documented by: Ondansetron HCl (Zofran) 4 mg IV Q8H PRN PRN PRN Reason: NAUSEA Promethazine HCl (Phenergan) 12.5 mg IM Q6H PRN PRN; Protocol PRN Reason: NAUSEA/VOMITING Senna/Docusate Sodium (Senokot-S, Ginger-Colace) 2 tablet PO BID [facility] Last Admin: 08/04/19 07:35 Dose: 2 tablet Documented by: Sodium Chloride () 10 - 40 ml IV UD PRN PRN Reason: SALINE FLUSH Tramadol HCl (Ultram) 0 mg PO Q6H PRN PRN PRN Reason: Pain Score 1-10/10 Last Admin: 08/03/19 18:21 Dose: 100 mg Documented by: Medical Necessity - Tobacco Use Smoking Status: Never smoker Tobacco Use: Non-smoker Assessment/Plan All Active Problems Syncope (Acute) Status post left total knee arthroplasty Plan 1. Patient will continue using Ultram 1-2 every 6 hours PRN for severe pain. After discharge if patient feels that his pain is not well managed he can substitute the Ultram with his prescribed Oxydon. Patient will you only use one at a time as this may have caused his confusion yesterday. 2. Weight-bear as tolerated with walker 3. Aspirin 3 and 25 mg 1 p.o. every 12 hours x30 days for postop DVT prophylaxis 4. Encourage incentive spirometry 5. Discharge home today 6. Follow-up as scheduled, see pink sheet 7. Patient will continue with outpatient physical therapy at [facility] [place]
[2019-08-04] MEDS: traMADol 50 MG Tablet PO (12:42)
[2019-08-04 12:45] VITALS: BP 111/78; PULSE 119; RESP 18; TEMP 36.4; O2SAT 99
[2019-08-04 12:50] VITALS: BP 111/78; PULSE 119; RESP 18; TEMP 36.4; O2SAT 99
== END 2019-08-04 12:51 | disposition home or self-care (01) | DRG 470 ==
LOC: MS3 13:48
PROVIDERS: Physician Assistant; Admitting Provider Orthopaedic Surgery; Family Provider Family Medicine; PCP Family Medicine; Referring Provider Orthopaedic Surgery; Visit Provider Orthopaedic Surgery
PROC: 0SRD0JA Replacement of Left Knee Joint with Synthetic Substitute, Uncemented, Open Approach (ICD-10-PCS; CPT 27447; principal; 2019-08-02 09:50)
DX: M17.12 Unilateral primary osteoarthritis, left knee (principal)
CPT/HCPCS: 36415; 71045; 80048; 81001; 82962; 85025; 85027; 87081; 87086; 88305; 88311; 97110; 97116; 97161; 97166; 97530; 99251; C1776; J7030; J7120; G0463

== ENCOUNTER → 2023-07-31 | Outpatient (CLI) | payer MEDICARE, BC, SELFPAY ==
--- NOTE | 2023-07-31 13:48 | ART_ITS ---
Reason For Study: PVD Procedure A bilateral lower extremity continuous wave Doppler with analog waveform analysis,segmental pressures,and ankle brachial indexes without exercise. Left Segmental Pressures Left brachial= 143mmHg. Left posterior tibial artery = 167mmHg. Left dorsalis pedis artery = 165mmHg. Left digit = 63 mmHg. The left dorsalis pedis waveforms are triphasic. The left posterior tibial artery waveforms are triphasic. Right Segmental Pressures Right brachial= 140mmHg. Right posterior tibial artery = 160mmHg. Right dorsalis pedis artery = 169mmHg. Right digit = 94 mmHg. The right dorsalis pedis waveforms are triphasic. The right posterior tibial artery waveforms are triphasic. Indices The right ankle brachial index by the dorsalis pedis is 1.18. The right ankle brachial index by the posterior tibial artery is 1.12. The right digital-brachial index is 0.66. The left ankle brachial index by the dorsalis pedis is 1.15. The left ankle brachial index by the posterior tibial artery is 1.17. The left digital-brachial index is 0.44. VL/Lower Ext Art Exam w/o Exercis Interpretation Summary Triphasic Doppler waveforms are noted at ankle level bilaterally. Pulse-volume recordings appear mildly diminished at digital level bilaterally. Resting ankle-brachial indices are normal bilaterally. The right digital-brachial index is mildly diminished. The left di gital-brachial index is moderately diminished. Arterial flow appears to be normal at ankle level bilaterally. There is evidenc e of mild arterial occlusive disease at digital level on the right. There is evidence of moderate arterial occlusive disease at digital level on the left. Ordering Physician: Deyvi Rajan Referring Physician: MD Zohaib Gerard Performed By: Connie Terrell RVT
--- NOTE | 2023-07-31 13:48 | VDLE_ITS ---
Reason For Study: Venous insufficiency RIGHT LEFT CFV is compressible, spontaneous, phasic, CFV is compressible, spontaneous, phasic, competent and demonstrates normal competent, and demonstrates normal augmentation. augmentation. FV is compressible, spontaneous, phasic, FV is compressible, spontaneous, phasic, competent and demonstrates normal competent and demonstrates normal augmentation. augmentation. POP V is compressible, spontaneous, phasic, POP V is compressible, spontaneous, phasic, competent and demonstrates normal competent and demonstrates normal augmentation. augmentation. T/P Trunk is compressible. T/P Trunk is compressible. PTV is compressible. PTV is compressible. RT PerV is compressible. LT PerV is compressible. SFJ is competent and measures 0.64 x 0.65 cm. SFJ is competent and measures 0.87 x 1.21 cm. GSV proximal thigh measures 0.23 x 0.25 cm. GSV proximal thigh measures 0.40 x 0.37 cm. GSV at knee measures 0.32 x 0.30 cm. GSV at knee measures 0.30 x 0.31 cm. GSV is competent throughout. GSV is competent throughout. SSV proximal calf is competent and measures SSV proximal calf is competent and measures 0.11 x 0.12 cm. 0.23 x 0.25 cm. Procedure This is a venous duplex using B-mode, color flow and spectral Doppler. Exam performed in department. Patient was scanned in reverse Trendelenburg position during reflux assessment. VL/Venous Duplex US - Tristan Extrem Interpretation Summary Deep veins of the lower extremities are bilaterally patent and compressible seg mentally. There is no evidence of deep vein thrombosis on either side. Valvular competence appears in tact within the proximal deep venous systems bilaterally. The great saphenous veins appear bila terally patent and compressible segmentally. Sapheno-femoral junctions are bilaterally competent . Valvular competence appears to be intact segmentally within the great saphenous veins bilaterally. Small saphenous veins are patent and competent bilaterally. Ordering Physician: Deyvi Rajan Referring Physician: MD Zohaib Gerard Performed By: Connie Terrell RVT
== END | disposition home or self-care (01) ==
LOC: CVS 13:47
PROVIDERS: PCP Family Medicine; Referring Provider Student in an Organized Health Care Education/Training Program; Visit Provider Student in an Organized Health Care Education/Training Program
DX: I73.9 Peripheral vascular disease, unspecified (principal); I87.2 Venous insufficiency (chronic) (peripheral); R60.0 Localized edema
CPT/HCPCS: 93923; 93970

== ENCOUNTER 2023-12-16 11:01 | Inpatient (IN) | payer MEDICARE, BC, SELFPAY ==
[2023-12-16] VITALS (11 sets, daily range): BP systolic 139–172; BP diastolic 74–91; PULSE 49–58; RESP 12–17; TEMP 36.6–37.1; O2SAT 94–98; BMI 22.8; BMI 22.9
--- NOTE | 2023-12-16 11:50 | EKG12_ITS ---
Test Reason : DIZZINESS Blood Pressure : / mmHG Vent. Rate : 056 BPM Atrial Rate : 056 BPM P-R Int : 176 ms QRS Dur : 096 ms QT Int : 434 ms P-R-T Axes : 080 -22 043 degrees QTc Int : 418 ms Sinus bradycardia Otherwise normal ECG Confirmed by ROSANNA MCARTHUR, AD ([id number]), multimedia editor SANFORD VILLANUEVA ([id number]) on 12/17/2023 9:34:45 AM Referred By: Confirmed By:AD MARTE MD
--- NOTE | 2023-12-16 11:51 | CT_ITS ---
STUDY: CTA HEAD AND NECK WITH CONTRAST REASON FOR EXAM: Male, 68 years old. Neuro deficit, acute, stroke suspected RADIATION DOSAGE (If Supplied By Facility): CTDIvol = ( 29.32 ) mGy, DLP = ( 1603.20 ) mGycm TECHNIQUE: CT angiography was performed with a multi-detector CT scanner. Data acquisition was obtained from the skull base through the vertex following intravenous administration of IV 100mL [id number]-[id number]. MIP images were reconstructed from the axial data set. Post-processing of the angiographic images was performed, with multiplanar reformation and 3D reconstruction. Individualized dose optimization techniques were used for this CT. COMPARISON: No relevant priors. FINDINGS: Normal bilateral petrous carotid arteries. Normal right cavernous carotid artery with a normal supraclinoid bifurcation. Normal left cavernous carotid artery with a normal supraclinoid bifurcation. Normal right A1 segments of the anterior cerebral artery. There is hypoplastic development of the left A1 segment of the anterior cerebral arteries with an atretic but intact artery. Normal intact anterior communicating artery (ACOM). Normal bilateral A2 segments of the anterior cerebral arteries. Normal right M1 and M2 segments of the middle cerebral arteries, with a normal M1 bifurcation. Normal left M1 and M2 segments of the middle cerebral arteries, with a normal M1 bifurcation. Normal right posterior communicating artery (PCOM). There is a persistent origin of the left posterior cerebral artery with absence of the posterior communicating artery (PCOM). Normal bilateral vertebral arteries. Normal basilar artery with a normal basilar bifurcation. The visualized bilateral superior cerebellar (SCA) arteries are normal. Normal bilateral P1, P2 and visualized P3 segments of the posterior cerebral arteries. There is no demonstrated aneurysm of the burns paiute of [place]. Mild degree of cerebral atrophy. Tiny old lacunar infarct in the insular cortex of the right basal ganglia. AORTIC ARCH: Normal visualized aortic arch. Normal origins of the brachiocephalic, left common carotid, and left subclavian arteries. RIGHT CAROTID ARTERIES: Normal right common carotid artery (CCA). Normal right common carotid bulb. Normal origin of the right internal carotid (ICA) artery without a hemodynamically significant stenosis. Normal visualized cervical portion of the right internal carotid artery. Normal origin of the right external carotid artery (ECA). LEFT CAROTID ARTERIES: Normal left common carotid artery (CCA). Normal left common carotid bulb. There is minimal atherosclerotic plaque formation of the origin of the left internal carotid artery with less than 50% cross sectional diameter stenosis. Normal visualized cervical portion of the left internal carotid artery. Normal origin of the left external carotid artery (ECA). VERTEBRAL ARTERIES: Normal bilateral vertebral arteries. CT/CTA Head AND Neck W/ Contrast IMPRESSION: Cerebral atrophy. No acute abnormality is seen. Electronically Signed: Juan Alberto Arzola MD at 13:36 EDT ,
--- NOTE | 2023-12-16 12:05 | RAD_ITS ---
STUDY: X-RAY CHEST REASON FOR EXAM: Male, 68 years old. Neuro deficit, acute, stroke suspected -- STAT REPORT READ HYPERINFLATION TECHNIQUE: Single AP portable view of the chest. COMPARISON: Comparison is made with prior study dated August 03, 2019. FINDINGS: There is hyperinflation of the lungs consistent with chronic obstructive lung disease (COPD). Calcified granuloma in the right lobe. There is no demonstrated pleural abnormality. Normal size heart. Normal mediastinum and farhan. Normal visualized pulmonary arteries. Normal visualized aortic arch and descending thoracic aorta. Normal visualized thoracic spine. Normal visualized ribs, clavicles, and shoulders. There is no demonstrated abnormality of the visualized soft tissue structures of the upper abdomen. RAD/Chest 1 View IMPRESSION: Hyperinflation. The lungs are clear. Electronically Signed: Juan Alberto Arzola MD at 12:51 EDT ,
[2023-12-16 12:28] LABS: Absolute Lymphocyte Count 1.66 X10^3/uL (0.83-4.51); Absolute Neutrophil Count 4.4 X10^3/uL (2.0-7.7); Basophil% 1.5 % (0-1); Eosinophil# 0.04 X10^3/uL; Eosinophils% 0.6 % (0-5); Hematocrit 45.7 % (40-54); Lymphocyte # 1.66 X10^3/ul (0.83-4.51); Lymphocyte % 24.9 % (19-41); Mean Corp Hgb Conc 32.8 g/dL (32-36); Mean Corpuscular Hgb 28.4 pg (27.0-32.0); Mean Corpuscular Volume 86.4 fL (80-94); Monocyte# 0.36 X10^3/uL; Monocyte% 5.4 % (0-10); NRBC Flagged by Analyzer 0 % (0-5); Neutrophil # 4.42 X10^3/uL (2.7-7.7); Neutrophil % 66.4 % (47-70); Platelet Count 258 K/mm3 (150-450); RBC Distribution Width CV 14.6 % (11.6-14.6); RBC Distribution Width SD 45.9 fl (35.1-43.9); Red Blood Count 5.29 M/mm3 (4.6-6.2); White Blood Count 6.7 K/mm3 (4.4-11.0)
--- NOTE | 2023-12-16 12:34 | EDS_ITS ---
HPI <Carmella Jaimes RN - Last Filed: 12/16/23 15:01> History of Present Illness Chief Complaint: Dizziness Informant: patient and spouse/S.O. Onset/Context/Timing Onset: Days (5) Context: Sudden Onset Timing: Continuous Current Severity: Moderate Maximum Severity: Moderate Associated Symptoms Associated Symptoms: Left leg with decreased sensation Narrative Narrative: Patient is a 68-year-old male with past medical history significant for hypertension and vertigo who presents to the ED for dizziness and unsteady gait. Patient reports since this past Friday he has had some difficulty walking in which he has had to use a walker. He describes it as forgetting how to walk. He also reports feeling as if his left leg is asleep. He has had prior gait abnormalities due to a left total knee replacement. However he has been able to walk independently and without falls. He denies any recent falls. He does report that last night he felt as if he had an episode of vertigo that self resolved. He reports still feeling dizzy which he describes more as feeling off. He did have some ear fullness in which he saw ENT yesterday and they flushed his ears. This has not improved his symptoms. He also saw Ortho today thinking this may be an issue with his left knee. He had an x-ray which was reported by his is negative. He is normally very active. He denies any injury. He denies any recent travel. Prior similar symptoms: No Recent Illness/Hospitalization: No PFSH <Carmella Jaimes RN - Last Filed: 12/16/23 15:01> [facility] Medical History (Updated 12/16/23 @ 15:[address] Arsh Jane MD) HTN (hypertension) Vertigo Home Medications atenolol 50 mg tablet 50 mg PO DAILY htn 11/28/14 [History Last Taken 08/02/19] vufhjxbw-hvw-mnnvw acid 0.4 mg-lycopene 300 mcg-lutein 250 mcg tablet 1 ea PO DAILY supplement 07/21/19 [History Last Taken Unknown] Allergy/AdvReac Type Severity Reaction Status Date / Time No Known Allergies Allergy Verified 12/16/23 11:02 Family History Other Heart disease Myocardial infarction Surgical History History of knee replacement (~2019) Social History Smoking Status: Never smoker ROS <Carmella Jaimes RN - Last Filed: 12/16/23 15:01> ROS ED Constitutional Constitutional ED: Denies chills, fever(s), sweats or weight loss Eyes Eyes: Denies blurry vision, change in vision or diplopia ENT ENT ED: Denies ear pain, rhinorrhea or sore throat Cardiovascular Cardiovascular: Denies chest pain, orthopnea, palpitations, paroxysmal nocturnal dyspnea or racing heartbeat Respiratory/Chest Respiratory/Chest: Denies cough, dyspnea, dyspnea on exertion, orthopnea or paroxysmal nocturnal dyspnea Gastrointestinal Gastrointestinal: Denies abdominal pain, diarrhea, melena, nausea or vomiting Genitourinary Genitourinary ED: Denies dysuria, hematuria or urinary frequency Musculoskeletal Musculoskeletal: Reports back pain and other Details: Patient reports chronic lower back pain that has been unchanged for years ; Denies arthralgias, myalgias or neck pain Integumentary Denies abscess, Abrasions or rash Neurologic Neurologic: Reports paresthesias RLE and other Details: Patient reports feeling as if right leg is asleep. ; Denies headache(s) or weakness Psychiatric Psychiatric: Denies anxiety or depression Hematologic/Lymphatic Hematologic/Lymphatic: Reports systems reviewed and no addt'l complaints, except as documented EXAM <Carmella Jaimes RN - Last Filed: 12/16/23 15:01> Physical Exam Narrative Exam Narrative: Patient is awake, alert, talkative Const Vital Signs: 12/16/23 11:02 12/16/23 12:14 12/16/23 11:50 Temperature 98 F Temperature Source Temporal Pulse Rate 56 L 55 L Respiratory Rate 16 12 Respiratory Effort Respiratory Pattern Blood Pressure 158/74 H 164/88 H Blood Pressure Mean 102 113 Pulse Ox 98 96 Oxygen Delivery Method Room Air Room Air Room Air 12/16/23 12:18 12/16/23 12:20 12/16/23 12:45 Temperature Temperature Source Pulse Rate 57 L 52 L Respiratory Rate 14 14 Respiratory Effort Normal Non-Labored Respiratory Pattern Normal Blood Pressure 172/91 H 152/83 H Blood Pressure Mean 118 102 Pulse Ox 97 95 Oxygen Delivery Method 12/16/23 13:30 12/16/23 13:45 12/16/23 14:00 Temperature 98 F Temperature Source Pulse Rate 55 L 53 L 51 L Respiratory Rate 17 14 16 Respiratory Effort Respiratory Pattern Blood Pressure 144/85 H 148/87 H 147/77 H Blood Pressure Mean 101 104 100 Pulse Ox 94 94 94 Oxygen Delivery Method 12/16/23 15:00 Temperature Temperature Source Pulse Rate 49 L Respiratory Rate 12 Respiratory Effort Respiratory Pattern Blood Pressure 139/83 H Blood Pressure Mean 99 Pulse Ox 95 Oxygen Delivery Method Positive well nourished and well developed General Appearance ED: well developed and NAD HEENT Reports moist mucous membranes Negative for trauma or tenderness Eyes PERRL and EOMs intact bilaterally Neck no lymphadenopathy, supple and no JVD Chest Wall inspection of chest normal and palpation of chest normal Resp normal respiratory effort and clear to auscultation bilaterally Auscultation: Negative for rales, rhonchi or wheezes Cardio regular rate, regular rhythm, S1 normal heart sound, S2 normal heart sound and no murmurs GI normal to inspection, nondistended, normoactive bowel sounds and non-tender Palpation: soft Narrative: Denies dysuria, hematuria, and urinary frequency Back/Spine Cervical Spine: Negative for cervical spine tenderness Thoracic Spine / Upper Back: Negative for thoracic spinal tenderness Lumbar Spine / Lower Back: Negative for lumbar spinal tenderness Extremity normal to inspection Extremity Narrative: Patient reports right leg feels as if it is asleep General Extremety ED: Negative for edema or tenderness General Extremity: Negative for edema Neuro oriented x3 Sensorium / Orientation: alert Motor Exam: strength 5/5 throughout Psych mental status grossly normal Skin no rashes or lesions noted, no wounds and skin turgor normal General Skin Exam: elasticity normal NIHSS NIHSS Initial: 1a Level of Consciousness: 0 1b LOC Questions (Score 2 if aphasic/stupor): 0 1c LOC Commands (Only score 1st attempt): 0 2 Best Gaze (If aphasic, use reflexive mvmts.): 0 3 Visual: 0 4 Facial Palsy: 0 5 Motor Arm Right (UN = amputation/fusion): 0 5 Motor Arm Left: 0 6 Motor Leg Right: 0 6 Motor Leg Left: 0 7 Limb ataxia (Only + if out of proportion): 0 8 Sensory (Aphasia/stupor=0 or 1, coma=2): 1 (Right leg) 9 Best Language: 0 10 Dysarthria (mute, coma=2, intubated=UN): 0 11 Extinction and Inattention (only scored if +): 0 Total Score: 1 <Dr. Arsh Jane MD - Last Filed: 12/16/23 15:17> Physical Exam Const Vital Signs: 12/16/23 11:02 12/16/23 12:14 12/16/23 11:50 Temperature 98 F Temperature Source Temporal Pulse Rate 56 L 55 L Respiratory Rate 16 12 Respiratory Effort Respiratory Pattern Blood Pressure 158/74 H 164/88 H Blood Pressure Mean 102 113 Pulse Ox 98 96 Oxygen Delivery Method Room Air Room Air Room Air 12/16/23 12:18 12/16/23 12:20 12/16/23 12:45 Temperature Temperature Source Pulse Rate 57 L 52 L Respiratory Rate 14 14 Respiratory Effort Normal Non-Labored Respiratory Pattern Normal Blood Pressure 172/91 H 152/83 H Blood Pressure Mean 118 102 Pulse Ox 97 95 Oxygen Delivery Method 12/16/23 13:30 12/16/23 13:45 12/16/23 14:00 Temperature 98 F Temperature Source Pulse Rate 55 L 53 L 51 L Respiratory Rate 17 14 16 Respiratory Effort Respiratory Pattern Blood Pressure 144/85 H 148/87 H 147/77 H Blood Pressure Mean 101 104 100 Pulse Ox 94 94 94 Oxygen Delivery Method 12/16/23 15:00 Temperature Temperature Source Pulse Rate 49 L Respiratory Rate 12 Respiratory Effort Respiratory Pattern Blood Pressure 139/83 H Blood Pressure Mean 99 Pulse Ox 95 Oxygen Delivery Method NIHSS NIHSS Initial: Total Score: 1 MDM <Carmella Jaimes RN - Last Filed: 12/16/23 15:01> MDM MDM Narrative Medical decision making narrative: IV line initiated. Labwork obtained to evaluate for leukocytosis, anemia, and electrolyte derangement. EKG obtained to evaluate for cardiac arrhythmia/ischemia. Chest x-ray obtained to evaluate for acute lung pathology, cardiac size, or mediastinal abnormality. CT head without contrast obtained to evaluate for hemorrhagic stroke or lesions. CTA head obtained to evaluate for ischemic stroke. History & Record Review Discussion w/independent historian: Patient and Significant other Lab Data Attestation: I reviewed the patient's lab results. Labs: Laboratory Results - last 24 hr 12/16/23 12:10 WBC 6.7 RBC 5.29 Hgb 15.0 Hct 45.7 MCV 86.4 MCH 28.4 MCHC 32.8 RDW Std Deviation 45.9 H RDW Coeff of Deny 14.6 Plt Count 258 MPV 10.0 Immature Gran % (Auto) 1.200 H Neut % (Auto) 66.4 Lymph % (Auto) 24.9 [place] % (Auto) 5.4 Eos % (Auto) 0.6 Baso % (Auto) 1.5 H Absolute Neuts (auto) 4.4 Absolute Lymphs (auto) 1.66 Nucleated RBC % 0 PT 13.7 INR 1.1 APTT 25.8 Sodium 139 Potassium 5.2 H Chloride 108 H Carbon Dioxide 27.0 Anion Gap 4 L BUN 15 Creatinine 0.84 Estim Creat Clear Calc 92.22 Est GFR (MDRD) Af Amer 117 Est GFR (MDRD) Non-Af 97 BUN/Creatinine Ratio 17.9 Glucose 111 H Calcium 9.2 Troponin I High Sens 7 Radiography Chest X-Ray - ED: 1 View Diagnostic Testing: Clinical Impression(s) from Imaging Studies Head/Neck CTA 12/16/23 11:51 IMPRESSION: Cerebral atrophy. No acute abnormality is seen. Electronically Signed: Juan Alberto Arzola MD at 13:36 EDT , Chest X-Ray 12/16/23 12:05 IMPRESSION: Hyperinflation. The lungs are clear. Electronically Signed: Juan Alberto Arzola MD at 12:51 EDT , EKG Initial EKG: Attestation: I personally reviewed and interpreted this EKG as follows: Interpretation: Sinus Bradycardia Comments: Sinus bradycardia with heart rate 56. No dysrhythmia or ischemia noted. Differential Diagnosis Chest pain/SOB: ACS Differential Diagnosis: Stroke Management Discussion w/another healthcare provider: Other (Dr. Jane, ED provider.) Treatment and Re-Evaluation :: Lab work and imaging reviewed. CBC shows a normal white count 6.7 with 66.4 neutrophils. Hemoglobin is 15. Platelets are 258. Chemistry reveals slightly elevated potassium of 5.2, BUN 15, creatinine 0.84, and glucose 111. High- sensitivity troponins negative at 7. Coagulation studies are unremarkable with a PT of 13.7, INR 1.1, and PTT 25.8. Chest x-ray shows normal mediastinum, no cardiomegaly, and no acute pulmonary process. CTA of the head shows cerebral atrophy with no acute abnormalities. EKG shows sinus bradycardia at 56 with no dysrhythmia or ischemia noted. Patient was ambulated in the hallway. Without a walker he was unable to move his right leg forward. With the walker he was able to ambulate with a more steady gait. After further discussion with the patient and his , the patient had been outside doing yard work when the gait disturbance happened suddenly. Upon reevaluation, patient was resting comfortably in bed. Discussed plan for admission and MRI. Patient and agreeable. Dr. Jane spoke with hospitalist regarding admission. <Dr. Arsh Jane MD - Last Filed: 12/16/23 15:17> [facility] Narrative Medical decision making narrative: IV line initiated. Labwork obtained to evaluate for leukocytosis, anemia, and electrolyte derangement. EKG obtained to evaluate for cardiac arrhythmia/ischemia. Chest x-ray obtained to evaluate for acute lung pathology, cardiac size, or mediastinal abnormality. CT head without contrast obtained to evaluate for hemorrhagic stroke or lesions. CTA head obtained to evaluate for ischemic stroke. I have personally performed a face to face assessment of the patient and have reviewed the NANCY Note. I performed a substantive portion of the visit including all aspects of the following. My saenz findings include: History is remarkable for difficulty walking this started Friday. He normally walks without a walker. He now needs to use a walker. He has a shuffled gait. He denies headache, he has had some blurred vision that is binocular. Denies a renas ears decreased hearing. Denies trouble speech or swallowing. Denies paresthesia or anesthesia problems other than left thigh which is chronic. He denies cardiac or respiratory symptoms. He denies GI symptoms. There is no history of TIA or CVA. Exam is is unremarkable. NIH is 0 for me. The altered sensation is old. There is no dysmetria. [id number]-[id number] is normal. There is no visual field cuts. Patient's gait is abnormal. Medical Decision Making stroke workup was initiated. CT of the head without contrast and CTA of the head neck. Plan is to call hospitalist for admission Other additions or changes: Case discussed with hospitalist Dr. Lloyd. Patient be admitted. He will need an MRI. Lab Data Labs: Laboratory Results - last 24 hr 12/16/23 12:10 WBC 6.7 RBC 5.29 Hgb 15.0 Hct 45.7 MCV 86.4 MCH 28.4 MCHC 32.8 RDW Std Deviation 45.9 H RDW Coeff of Deny 14.6 Plt Count 258 MPV 10.0 Immature Gran % (Auto) 1.200 H Neut % (Auto) 66.4 Lymph % (Auto) 24.9 [place] % (Auto) 5.4 Eos % (Auto) 0.6 Baso % (Auto) 1.5 H Absolute Neuts (auto) 4.4 Absolute Lymphs (auto) 1.66 Nucleated RBC % 0 PT 13.7 INR 1.1 APTT 25.8 Sodium 139 Potassium 5.2 H Chloride 108 H Carbon Dioxide 27.0 Anion Gap 4 L BUN 15 Creatinine 0.84 Estim Creat Clear Calc 92.22 Est GFR (MDRD) Af Amer 117 Est GFR (MDRD) Non-Af 97 BUN/Creatinine Ratio 17.9 Glucose 111 H Calcium 9.2 Troponin I High Sens 7 Radiography Diagnostic Testing: Clinical Impression(s) from Imaging Studies Head/Neck CTA 12/16/23 11:51 IMPRESSION: Cerebral atrophy. No acute abnormality is seen. Electronically Signed: Juan Alberto Arzola MD at 13:36 EDT , Chest X-Ray 12/16/23 12:05 IMPRESSION: Hyperinflation. The lungs are clear. Electronically Signed: Juan Alberto Arzola MD at 12:51 EDT , Discharge Plan Dx/Rx/DC Orders Clinical Impression: History of vertigo, Abnormal gait, History of hypertension, Bradycardia, sinus Disposition Disposition: Acute Care Hospital [facility]
[2023-12-16 12:36] LABS: International Normalized Ratio 1.1; Prothrombin Time (Protime)PT. 13.7 SECONDS (11.7-14.9)
[2023-12-16 12:37] LABS: Partial Thromboplast Time 25.8 Seconds (24.1-36.2)
--- NOTE | 2023-12-16 12:38 | ED.RN ---
NIHSS stopped, pt symptoms since Friday
--- NOTE | 2023-12-16 12:39 | ED.RN ---
NIHSS 0-1, pt states denies loss of sensation to left upper thigh, can feel touch equally but does acknowledge some tingling
[2023-12-16 12:42] LABS: Anion Gap 4 (5-15); BUN 15 mg/dL (7-18); BUN/Creat Ratio 17.9 RATIO (10-20); Calcium,Total 9.2 mg/dL (8.5-10.1); Chloride 108 mmol/L (98-107); Creatinine, Serum 0.84 mg/dL (0.70-1.30); EST Glomerular Filtration Rate 97 mL/min (>60); Est Glom Filt Rate - Afr Amer 117 mL/min (>60); Estimated Creatinine Clearance 92.22 ml/min; Glucose 111 mg/dL (74-106); Potassium 5.2 mmol/L (3.5-5.1); Sodium Level 139 mmol/L (136-145); Troponin-I HS 7 pg/mL (3.0-78.0)
--- NOTE | 2023-12-16 14:28 | PCM.HP.STD ---
HPI - General General Date of Admission: 12/16/23 Date of Service: 12/16/23 Chief Complaint: Gait abnormality since Friday for about 4-5 days HPI Narrative NASIM GAVIN, is a 68 M came to ED after sent from orthopedic office for disequilibrium/gait abnormality. Patient is stated that he had left knee replacement about 3 years ago and was doing fine until recently when he was given walker for walking. On walker he was doing fine but felt like imbalance/disequilibrium since last Friday. He went to see his orthopedic surgeon today and was told that his knee joint is on baseline after surgery but should go to ED to rule out a stroke. Patient denies any other symptoms including focal weakness, loss of sensation, language or speech abnormality, dysarthria or dysphagia. Denies loss of vision or blurry vision. Patient is stated he also felt dizzy/lightheaded today but denies leaning on one side or deviation. No prior history of for stroke/CAD or LA or PAD. Denies claudication pain. In ED, EKG was done which shows sinus bradycardia 56 bpm. Last EKG in May 2019 was normal sinus rhythm, normal EKG. Patient is further admitted to rule out a stroke [facility] Medical History HTN (hypertension) Vertigo Home Medications atenolol 50 mg tablet 50 mg PO DAILY htn 11/28/14 [History Last Taken 08/02/19] rmumyvhz-usp-eglll acid 0.4 mg-lycopene 300 mcg-lutein 250 mcg tablet 1 ea PO DAILY supplement 07/21/19 [History Last Taken Unknown] Allergy/AdvReac Type Severity Reaction Status Date / Time No Known Allergies Allergy Verified 12/16/23 11:02 Family History Other Heart disease Myocardial infarction Surgical History History of knee replacement (~2019) Social History household members: spouse Smoking Status: Never smoker ROS ROS Narrative Constitutional: Reports fatigue and weakness. No fever. HEENT: Reports systems reviewed and no addt'l complaints, except as documented Respiratory/Chest: No acute shortness of breath or respiratory distress or wheezing. CVS: No chest pain pressure or tightness Gastrointestinal: Denies coffee ground emesis, hematemesis or vomiting Genitourinary: Denies burning urination or new urinary tract symptoms Musculoskeletal: Denies acute joint pain or limited range of motion. No acute injury Neurologic: History of vertigo. Denies seizure-like symptoms. Rest as described in HPI skin: No ulcer. No rash Endocrinology: Reports systems reviewed and no addt'l complaints, except as documented Hematologic/Lymphatic: Reports systems reviewed and no addt'l complaints, except as documented Rest 14 ROS are negative except as mentioned in HPI Vital Signs Vital Signs Vital Signs: 12/16/23 11:02 12/16/23 12:14 12/16/23 11:50 Temperature 98 F Temperature Source Temporal Pulse Rate 56 L 55 L Respiratory Rate 16 12 Respiratory Effort Respiratory Pattern Blood Pressure 158/74 H 164/88 H Blood Pressure Mean 102 113 Pulse Ox 98 96 Oxygen Delivery Method Room Air Room Air Room Air 12/16/23 12:18 12/16/23 12:20 12/16/23 12:45 Temperature Temperature Source Pulse Rate 57 L 52 L Respiratory Rate 14 14 Respiratory Effort Normal Non-Labored Respiratory Pattern Normal Blood Pressure 172/91 H 152/83 H Blood Pressure Mean 118 102 Pulse Ox 97 95 Oxygen Delivery Method 12/16/23 13:30 12/16/23 13:45 Temperature Temperature Source Pulse Rate 55 L 53 L Respiratory Rate 17 14 Respiratory Effort Respiratory Pattern Blood Pressure 144/85 H 148/87 H Blood Pressure Mean 101 104 Pulse Ox 94 94 Oxygen Delivery Method Weight Weight: 168 lb 6.931 oz Body Mass Index (BMI) 22.8 Physical Exam Narrative General: Alert, Oriented x3, Cooperative HEENT: Atraumatic, PERRLA, EOMI, Normocephalic Oral: Oral mucosa moist. No Gingival or Mucosal Lesions/ Ulcerations Neck: Supple, No JVD, Negative Carotid Bruits Chest wall/Lungs: Air entry diminished in bilateral lung bases. No crepitation/rhonchi Cardiovascular: Regular rate, Regular Rhythm, Normal S1, Normal S2, No M/G/R Abdomen: Bowel Sounds Present, Soft, Non Tender, Non-Distended : No dysuria. No renal angle tenderness. No suprapubic tenderness. Extremities: No edema, Capillary Refill Less than 3 Seconds Skin: No rashes, No breakdown Musculoskeletal: No Tenderness to Palpation of Joints or Extremities. ROM limited due to knee surgery and replacement. Power 5/5 at knee and hip joints Neurological: Cranial nerves II-XII grossly intact, DTR 2+/4. No acute focal neurological deficit. NIH stroke scale 0. Psych/Mental Status: Normal Affect, Appropriate. Results Lab / Micro Data 12/16/23 12:10 12/16/23 12:10 Labs: Laboratory Results - last 24 hr 12/16/23 12:10: WBC 6.7, RBC 5.29, Hgb 15.0, Hct 45.7, MCV 86.4, MCH 28.4, MCHC 32.8, RDW Std Deviation 45.9 H, RDW Coeff of Deny 14.6, Plt Count 258, MPV 10.0, Immature Gran % (Auto) 1.200 H, Neut % (Auto) 66.4, Lymph % (Auto) 24.9, [place] % (Auto) 5.4, Eos % (Auto) 0.6, Baso % (Auto) 1.5 H, Absolute Neuts (auto) 4.4, Absolute Lymphs (auto) 1.66, Nucleated RBC % 0, PT 13.7, INR 1.1, APTT 25.8, Sodium 139, Potassium 5.2 H, Chloride 108 H, Carbon Dioxide 27.0, Anion Gap 4 L, BUN 15, Creatinine 0.84, Estim Creat Clear Calc 92.22, Est GFR (MDRD) Af Amer 117, Est GFR (MDRD) Non-Af 97, BUN/Creatinine Ratio 17.9, Glucose 111 H, Calcium 9.2, Troponin I High Sens 7 Imaging Radiology Impression Head/Neck CTA 12/16/23 11:51 IMPRESSION: Cerebral atrophy. No acute abnormality is seen. Electronically Signed: Juan Alberto Arzola MD at 13:36 EDT , Chest X-Ray 12/16/23 12:05 IMPRESSION: Hyperinflation. The lungs are clear. Electronically Signed: Juan Alberto Arzola MD at 12:51 EDT , Assessment & Plan Assessment/Plan (1) Abnormal gait: PLAN: Plan This is a 68-year-old gentleman being admitted for gait abnormality for last 4 to 5 days. 1. Recent onset of gait abnormality/disequilibrium rule out a stroke: Patient is being admitted in PCU. Initial head and neck CTA shows no acute abnormality. Chest x-ray shows lungs clear. PT, OT, speech therapy/swallow evaluation and management, nursing NIH stroke scale, BP and glucose monitoring and control as per stroke protocol. TSH, A1c fasting lipid profile tomorrow AM. MRI brain and 2D echo with bubble contrast study ordered. Empirically started on baby aspirin and high intensity statin. Clinically suspicion of a stroke low as NIH stroke scale is 0. 2. Hypertension: BP mildly elevated but within a stroke protocol. Patient on atenolol at home. 3. Past history of vertigo: Currently patient does not have vertigo or nystagmus. 4. DVT prophylaxis moderate risk: Heparin 530 units subcutaneous 3 times daily ordered. Living will/advanced directive/end of life care: Patient does have living will or advanced directive. His is power of bankruptcy attorney for health. After discussion of benefits/risks procedures involved with full code, DNR CC arrest and DNR CC, the patient opted for full code. Patient does want artificial life support including intubation, tube feed, ventilator and/chest compression, central venous catheter, vasopressor and DC shock if needed Total time spent in [id number] encounter in discussion of advanced directive 17 minutes. Laboratory Results 12/16/23 12:10: WBC 6.7, RBC 5.29, Hgb 15.0, Hct 45.7, MCV 86.4, MCH 28.4, MCHC 32.8, RDW Std Deviation 45.9 H, RDW Coeff of Deny 14.6, Plt Count 258, MPV 10.0, Immature Gran % (Auto) 1.200 H, Neut % (Auto) 66.4, Lymph % (Auto) 24.9, [place] % (Auto) 5.4, Eos % (Auto) 0.6, Baso % (Auto) 1.5 H, Absolute Neuts (auto) 4.4, Absolute Lymphs (auto) 1.66, Nucleated RBC % 0, PT 13.7, INR 1.1, APTT 25.8, Sodium 139, Potassium 5.2 H, Chloride 108 H, Carbon Dioxide 27.0, Anion Gap 4 L, BUN 15, Creatinine 0.84, Estim Creat Clear Calc 92.22, Est GFR (MDRD) Af Amer 117, Est GFR (MDRD) Non-Af 97, BUN/Creatinine Ratio 17.9, Glucose 111 H, Calcium 9.2, Troponin I High Sens 7 Clinical Impression(s) from Imaging Studies Head/Neck CTA 12/16/23 11:51 IMPRESSION: Cerebral atrophy. No acute abnormality is seen. Chest X-Ray 12/16/23 12:05 IMPRESSION: Hyperinflation. The lungs are clear. Charges/Coding Visit Charges Inpatient E&M: 89165 Init Hosp L3 Procedures Hospitalists Procedures: 07487 Advncd Care Plan 30 Min
--- NOTE | 2023-12-16 14:55 | ED.RN ---
When attempting to ambulate, pt unable to move right leg forward to take a step without walker present. Pt and spouse had initially thought left leg was the issue.
--- NOTE | 2023-12-16 15:14 | NURSING ---
PCU DEA UNABLE TO AMBULATE
--- NOTE | 2023-12-16 18:06 | MRI_ITS ---
STUDY: MRI BRAIN WITHOUT CONTRAST REASON FOR EXAM: Male, 68 years old. STROKE SUSPECTED TECHNIQUE: Standardized multiplanar fat and water weighted pulse sequences were obtained. COMPARISON: CT brain December 16, 2023. FINDINGS: There is moderate cerebral atrophy with widening of the extra-axial spaces and ventricular dilatation. Normal white matter tracts of the supratentorial brain. There is no evidence for recent intracranial ischemia or other cause of cytotoxic edema on diffusion weighted imaging (DWI). Normal bilateral basal ganglia. Normal thalami. There is no extra-axial fluid accumulation. Normal flow voids within the major intracranial circulation suggesting patency by spin echo criteria. Normal sella turcica, pituitary gland, infundibular stalk, optic chiasm and hypothalamus. Normal tectal plate and pineal gland. Normal midbrain, gloria and medulla. Normal cerebellum. Normal basal cisterns. Normal bilateral temporal bones. Normal bilateral internal auditory canals. No demonstrated orbital abnormality, within the constraints of a routine brain study. Normal visualized paranasal sinuses. Normal calvarium and skull base. Normal visualized soft tissue structures. Normal visualized upper cervical spine. MRI/Brain without Contrast IMPRESSION: No acute disease Electronically Signed: Jb Pack MD at 19:40 EDT ,
[2023-12-16] MEDS: 0.9% Normal Saline (1000mL) 1,000 ML 100 ML IV (20:08)
[2023-12-16] MEDS: Aspirin 81 MG TAB.CHEW PO (20:10)
[2023-12-16] MEDS: 0.9% Saline Lock 10 ML Syringe IV (20:10)
[2023-12-17] VITALS (9 sets, daily range): BP systolic 97–148; BP diastolic 55–81; PULSE 60–68; RESP 16–18; TEMP 36.1–36.7; O2SAT 92–95; BMI 22.9
--- NOTE | 2023-12-17 05:55 | ECHOCS_ITS ---
Reason For Study: CVA Procedure This was a 2D Doppler, Color Flow transthoracic echocardiogram. The study was technically difficult. POOR PARASTERNAL WINDOWS. Exam performed portable in patient room. Left Ventricle Normal LV size. Left ventricular systolic function is normal. The estimated ejection fraction is 60 %. Stage 1 diastolic dysfunction. No regional wall motion abnormalities noted. Right Ventricle Normal RV size. Normal systolic function. Atria Normal left atrium. Normal right atrium. Bubble contrast study negative for right to left interatrial shunt. Mitral Valve Normal mitral valve. Tricuspid Valve Normal tricuspid valve. Mild (1+) tricuspid valve insufficiency. Pulmonary artery systolic pressure is 23 mmHg. Aortic Valve Normal aortic valve. Trisinus/trileaflet aortic valve. Pulmonic Valve Normal pulmonic valve. Great Vessels Normal aortic root. The pulmonary artery is normal size. Inferior vena cava collapse with respiration. Pericardium/Pleural No pericardial effusion. Medication Performed a rapid injection of agitated mix of 9 cc saline and 1cc air to assess for atrial septal defect. MMode/2D Measurements & Calculations RVDd: 4.7 cm LVOT diam: 2.4 cm Ao root diam: 3.8 cm LVOT area: 4.7 cm2 LAV(MOD-bp): 41.7 ml LVAd ap4: 31.5 cm2 LVAd ap2: 28.8 cm2 LAV(MOD-bp) Indexed: 21.0 ml/m2 LVLd ap4: 7.8 cm LVLd ap2: 7.7 cm LAV(MOD-sp2): 32.7 ml EDV(MOD-sp4): 107.2 ml EDV(MOD-sp2): 90.3 ml LAV(MOD-sp4): 45.5 ml EDV(sp4-el): 108.7 ml EDV(sp2-el): 91.6 ml LVAs ap4: 18.6 cm2 LVAs ap2: 17.1 cm2 LVLs ap4: 6.4 cm LVLs ap2: 6.5 cm ESV(MOD-sp4): 45.8 ml ESV(MOD-sp2): 38.7 ml ESV(sp4-el): 45.7 ml ESV(sp2-el): 38.2 ml EF(MOD-sp4): 57.2 % EF(MOD-sp2): 57.1 % EF(sp4-el): 58.0 % SV(MOD-sp4): 61.3 ml SV(MOD-sp2): 51.6 ml SV(sp4-el): 63.0 ml LA A4 area: 16.5 cm2 LA dimension(2D): 3.8 cm RA A4 area: 15.5 cm2 TAPSE: 2.9 cm Time Measurements MV dec time: 0.20 sec Doppler Measurements & Calculations MV E max chico: 56.4 cm/sec Lat Peak E' [place]: 12.5 cm/sec Med Peak E' [place]: 9.4 cm/sec MV A max chico: 84.0 cm/sec E/E' lat: 4.5 E/E' med: 6.0 MV E/A: 0.67 MV V2 max: 89.5 cm/sec MV P1/2t max chico: 53.9 cm/sec Ao V2 max: 118.4 cm/sec MV max P.2 mmHg MV P1/2t: 63.3 msec Ao max P.6 mmHg MV V2 mean: 48.8 cm/sec MV dec slope: 249.8 cm/sec2 Ao V2 mean: 82.3 cm/sec MV mean P.1 mmHg MVA(P1/2t): 3.5 cm2 Ao mean P.1 mmHg MV V2 VTI: 18.3 cm Ao V2 VTI: 24.4 cm MVA(VTI): 5.9 cm2 AV (velocity ratio): 0.95 CHRISTIE(I,D): 4.4 cm2 CHRISTIE(V,D): 4.5 cm2 LV V1 max: 114.7 cm/sec SV(LVOT): 108.4 ml PA V2 max: 114.5 cm/sec LV V1 max P.3 mmHg PA V2 mean: 81.0 cm/sec LV V1 mean P.4 mmHg LV V1 mean: 71.6 cm/sec LV V1 VTI: 23.2 cm TR max chico: 233.0 cm/sec TR max P.7 mmHg ECHO/Echo Complete W/ Contrast Interpretation Summary Normal LV size. Left ventricular systolic function is normal. The estimated ejection fraction is 60 %. Bubble contrast study negative for right to left interatrial shunt. Stage 1 diastolic dysfunction. Pulmonary artery systolic pressure is 23 mmHg. Ordering Physician: Richmond Lloyd Referring Physician: Gerard Penny Performed By: Evelin Laurent, CHANEL, RVT
[2023-12-17 07:53] LABS: Anion Gap 6 (5-15); BUN 14 mg/dL (7-18); BUN/Creat Ratio 18.1 RATIO (10-20); Calcium,Total 8.7 mg/dL (8.5-10.1); Chloride 111 mmol/L (98-107); Cholesterol 182 mg/dL (200); Creatinine, Serum 0.77 mg/dL (0.70-1.30); EST Glomerular Filtration Rate 106 mL/min (>60); Est Glom Filt Rate - Afr Amer 129 mL/min (>60); Estimated Creatinine Clearance 97.33 ml/min; Glucose 106 mg/dL (74-106); High Density Lipoprotein 55 mg/dL; Potassium 4.2 mmol/L (3.5-5.1); Sodium Level 141 mmol/L (136-145); Thyroid Stim Hormone (TSH) 3.22 uIU/mL (0.358-3.74); Triglycerides 78 mg/dL; Very Low Density Lipoprotein 16 mg/dL (5-40)
[2023-12-17] MEDS: Aspirin 81 MG TAB.CHEW PO (09:25)
[2023-12-17] MEDS: Atenolol 50 MG Tablet PO (09:25)
[2023-12-17] MEDS: Acetaminophen 325 MG Tablet 650 MG PO (09:26)
--- NOTE | 2023-12-17 09:40 | NURSING ---
PCU charge nurse monitoring tele prn for alarms, etc.
--- NOTE | 2023-12-17 10:11 | PCM.PN.HOSP ---
Reason for Visit Reason for Visit: Diagnoses Unspecified abnormalities of gait and mobility (12/16/23) Subjective Subjective Patient is a 68-year-old gentleman who presented with difficulty with his gait. Per patient symptoms have been ongoing for months has gotten progressively worse however became more intense over the past 4-5 days. Admitted to monitored bed for further management Objective Data Objective Data Vital Signs: Vital Signs Temp Pulse Resp BP Pulse Ox O2 Del Method 98.0 F 66 18 148/81 H 94 Room Air 12/17/23 06:30 12/17/23 06:30 12/17/23 06:30 12/17/23 06:30 12/17/23 08:20 12/17/23 08:20 Oxygen Delivery Method Room Air Weight: 76.8 kg Body Mass Index (BMI) 22.9 Intake & Output: Intake and Output for Last 24 Hours 12/15/23 12/16/23 12/17/23 23:59 23:59 23:59 Intake Total 1700 / 1700 Balance 1700 / 1700 Lab / Micro Data 12/16/23 12:10 12/17/23 06:50 Labs: Laboratory Results - last 24 hr 12/16/23 12:10: WBC 6.7, RBC 5.29, Hgb 15.0, Hct 45.7, MCV 86.4, MCH 28.4, MCHC 32.8, RDW Std Deviation 45.9 H, RDW Coeff of Deny 14.6, Plt Count 258, MPV 10.0, Immature Gran % (Auto) 1.200 H, Neut % (Auto) 66.4, Lymph % (Auto) 24.9, [place] % (Auto) 5.4, Eos % (Auto) 0.6, Baso % (Auto) 1.5 H, Absolute Neuts (auto) 4.4, Absolute Lymphs (auto) 1.66, Nucleated RBC % 0, PT 13.7, INR 1.1, APTT 25.8, Sodium 139, Potassium 5.2 H, Chloride 108 H, Carbon Dioxide 27.0, Anion Gap 4 L, BUN 15, Creatinine 0.84, Estim Creat Clear Calc 92.22, Est GFR (MDRD) Af Amer 117, Est GFR (MDRD) Non-Af 97, BUN/Creatinine Ratio 17.9, Glucose 111 H, Calcium 9.2, Magnesium 2.0, Troponin I High Sens 7 12/17/23 06:50: Sodium 141, Potassium 4.2, Chloride 111 H, Carbon Dioxide 24.0, Anion Gap 6, BUN 14, Creatinine 0.77, Estim Creat Clear Calc 97.33, Est GFR (MDRD) Af Amer 129, Est GFR (MDRD) Non-Af 106, BUN/Creatinine Ratio 18.1, Glucose 106, Calcium 8.7, Triglycerides 78, Cholesterol 182, LDL Cholesterol 111, VLDL Cholesterol 16, HDL Cholesterol 55, TSH 3.22 Radiography Diagnostic Testing: Radiology Impression Head/Neck CTA 12/16/23 11:51 IMPRESSION: Cerebral atrophy. No acute abnormality is seen. Electronically Signed: Juan Alberto Arzola MD at 13:36 EDT , Chest X-Ray 12/16/23 12:05 IMPRESSION: Hyperinflation. The lungs are clear. Electronically Signed: Juan Alberto Arzola MD at 12:51 EDT , Brain MRI 12/16/23 18:06 IMPRESSION: No acute disease Electronically Signed: Jb Pack MD at 19:40 EDT , Physical Exam Narrative GENERAL: cooperative HEENT: Atraumatic; normocephalic EYES; Anicteric, Normal Conjunctiva NECK; supple, normal thyroid, RESPIRATORY: Diminished to auscultation CARDIOVASCULAR: Regular S1 S2, GI: soft, normoactive bowel sounds, : No Renal angle tenderness; EXTREMITIES: No edema, no clubbing, MUSCULOSKELETAL: no muscle wasting NEURO: Awake; no lateralizing signs. SKIN: No Rash PSYCH; Flat affect Assessment & Plan Assessment/Plan (1) Abnormal gait: PLAN: Plan Patient is a 68-year-old gentleman who presented with difficulty with his gait. Per patient symptoms have been ongoing for months has gotten progressively worse however became more intense over the past 4-5 days. Admitted to monitored bed for further management 1. Gait instability ? Of unclear etiology. MRI and CT a of the head and neck obtained as part of his evaluation came back unremarkable. Requested for PT OT eval. Also requested for imaging of the spine to rule out demyelinating disease. As part of his management consult was placed to teleneuro 2. Hypertension - Blood pressure controlled, home medications continued with dose adjustment as needed 3. Vertigo ? Patient has apparently experienced intermittent vertigo in the past. As stated above MRI obtained was negative for posterior circulation CVA 4. DVT prophylaxis ? SC heparin Time spent in the patient's overall evaluation,decision-making process, review of diagnostic data, adjustment of management, discussion with other providers, nursing nursing and ancillary staff involved in patient's care documentation, 38 Minutes Charges/Coding Visit Charges Inpatient E&M: 34051 Subs Hosp L2
--- NOTE | 2023-12-17 11:25 | CASEMGMT ---
RN CM Face to Face with patient for initial transition planning/care coordination assessment. RN CM introduced self and role at [facility]. Patient sitting in chair, alert and oriented, at bedside. Patient willing to participate in assessment and is able to answer all questions appropriately. Care providers, pharmacy, and demographics verified. PCP: Zohaib Specialists: none Preferred Pharmacy: [facility] Insurance: Dinah RIVERA Prescription Benefit: yes Living Will/HPOA: yes, Lauren Saravia LNOK: Living Arrangements: Patient lives with in a 2 story home with bed and bath on first floor, 3 steps and railing to enter the home. Patient is independent at home. Transportation: self, DME/HHC: Patient has built in shower seat, raised toilet, cane, walker, grab bars at home. No previous HHC or SNF. Patient wishes to discharge home with outpatient therapy at [facility]. Patient states he has no further needs or concerns at this time. CM to follow for discharge planning needs that may arise. Disposition Plan: Patient to discharge home with outpatient therapy, family support, and follow-up plans in place. Connie ACEVES, RN, CM
--- NOTE | 2023-12-17 11:50 | NURSING ---
Kendal MCLAUGHLIN charge nurse states she notified [facility] tele-neurology of consult
--- NOTE | 2023-12-17 12:09 | MRI_ITS ---
STUDY: MRI CERVICAL SPINE WITHOUT CONTRAST REASON FOR EXAM: Male, 68 years old. Suspected demyelinating disease TECHNIQUE: Standardized fat and water weighted pulse sequences were obtained in the sagittal and axial planes. COMPARISON: None FINDINGS: Normal foramen magnum and brainstem-cervical cord junction. Normal craniovertebral junction. Normal anterior atlantoaxial articulation. Normal odontoid process. Normal cervical lordosis. Normal vertebral bodies and posterior osseous elements. C2-3: Normal endplates. Normal disc height, signal and morphology. Normal central canal and intervertebral neural foramina. C3-4: Spondylitic endplates. Normal disc height, signal and morphology. Normal central canal and narrowed intervertebral neural foramina. C4-5: Disc space narrowing. Small broad-based posterior disc marginal osteophyte and uncinate spondylosis. Moderate narrowing of the neural foramina bilaterally. Central canal patent. C5-6: Normal endplates. Normal disc height, signal and morphology. Normal central canal and intervertebral neural foramina. C6-7: Normal endplates. Normal disc height, signal and morphology. Normal central canal and narrowed intervertebral neural foramina. C7-T1: Normal endplates. Normal disc height, signal and morphology. Normal central canal and intervertebral neural foramina. Normal cervical cord. Normal visualized soft tissue structures. MRI/Spine Cervical (Routine) IMPRESSION: No evidence of demyelination. Multilevel neural foraminal narrowing as above. Electronically Signed: Jb Pack MD at 18:10 EDT ,
--- NOTE | 2023-12-17 12:11 | MRI_ITS ---
STUDY: MRI THORACIC SPINE WITHOUT CONTRAST REASON FOR EXAM: Male, 68 years old patient with suspected demyelinating disease. TECHNIQUE: Standardized fat and water weighted pulse sequences were obtained in the sagittal and axial planes. COMPARISON: None. FINDINGS: There is an increased kyphosis of the thoracic spine. There is no substantial scoliosis. T1-2, T2-3, T3-4, T4-5, T5-6, T6-7, T7-8, T8-9, T9-10, T10-11, T11-12: Normal endplates. Normal disc signal, heights and morphology of the corresponding intervertebral discs. Normal central canal and intervertebral neural foramina at the corresponding levels.I Incidental note is made of prominent Tarlov cysts T6-7, T7-8, T9, T9-10, and T11-12. There are also left-sided Tarlov cysts most obvious at T8-9, T9-10 and T11-T12. Normal visualized thoracic cord. Normal conus medullaris that terminates at the L1 level. There is appears to be a complex mass arising from the upper pole of the right kidney measuring 3.8 x 3.8 x 2.1 cm in size. Paraspinal soft tissues are within normal limits in appearance. MRI/Spine Thoracic (Routine) IMPRESSION: 1. No MRI evidence to suggest demyelinating process of the thoracic spinal cord. 2. No MR evidence to suggest cord or nerve impingement. 3. Multiple thoracic Tarlov cysts as described. 4. Right-sided renal mass could be neoplastic in etiology. Electronically Signed: Esther James MD at 3:00 EDT ,
--- NOTE | 2023-12-17 12:11 | MRI_ITS ---
STUDY: MRI LUMBAR SPINE WITHOUT CONTRAST REASON FOR EXAM: Male, 68 years old. Suspected demyelinating disease TECHNIQUE: Standardized fat and water weighted pulse sequences were obtained in the sagittal and axial planes. COMPARISON: Prior comparison studies are not available for review at this time. FINDINGS: T12-L1: There is mild annular disk bulge and osteophyte complex. There is mild degenerative arthropathy of the facet joints. Bilateral neuroforamina are narrowed without MR evidence for nerve impingement. There is no appreciable acquired central canal stenosis. Normal lumbar lordosis. There is no substantial scoliosis. Normal conus medullaris that terminates at the T12-L1 level. L1-2: There is a prominent Schmorl''s node of the inferior endplate of L1. There may be small focal right foraminal disc protrusion at this level. There is mild annular disk bulge and osteophyte complex. There is mild degenerative arthropathy of the facet joints. Bilateral neuroforamina are narrowed without MR evidence for nerve impingement. There is mild acquired central canal stenosis. L2-3: There is moderately annular disk bulge and osteophyte complex. There is mild degenerative arthropathy of the facet joints. Bilateral neuroforamina are narrowed without MR evidence for nerve impingement. There is moderate acquired central canal stenosis. L3-4: There is mild annular disk bulge and osteophyte complex. There is mild degenerative arthropathy of the facet joints. Bilateral neuroforamina are narrowed without MR evidence for nerve impingement. There is mild acquired central canal stenosis. L4-5: There is very mild broad central disc protrusion. There is also an annular disc bulge posteriorly. No foraminal bilaterally narrowed without evidence of nerve impingement. There is moderate central acquired canal stenosis. There is mild degenerative arthropathy of the facet joints. L5-S1: There is mild annular disk bulge and osteophyte complex. There is mild degenerative arthropathy of the facet joints. Bilateral neuroforamina are narrowed without MR evidence for nerve impingement. There is no appreciable acquired central canal stenosis. Normal visualized sacral ala. There is a large sacral Tarlov cyst measuring up to approximately 2.5 x 2.4 x 2.4 cm. This is located at the S2 level. There is smaller Tarlov cyst on the right at S2 level. There is mild paraspinal muscular atrophy. MRI/Spine Lumbar (Routine) IMPRESSION: 1. Multilevel degenerative changes of the lumbar spine without foraminal narrowing and central acquired canal stenosis as described. 2. Multiple sacral Tarlov cysts. Electronically Signed: Esther James MD at 2:54 EDT ,
[2023-12-17] MEDS: LORazepam 2 MG/ML Syringe 1 MG IV (13:31)
[2023-12-17] MEDS: 0.9% Saline Lock 10 ML Syringe IV (13:32)
[2023-12-17] MEDS: Heparin Injection (Vial) 5,000 UNIT/ML VIAL 5000 UNIT SC ×2 (13:42→22:42)
[2023-12-17] MEDS: MELATONIN 3 MG TABLET PO (22:38)
[2023-12-18 05:16] VITALS: BP 114/75; PULSE 65; RESP 18; TEMP 36.8; O2SAT 97
[2023-12-18 07:57] VITALS: O2SAT 97
[2023-12-18 09:46] VITALS: BP 123/88; PULSE 81; RESP 18; TEMP 36.6; O2SAT 95
[2023-12-18] MEDS: Aspirin 81 MG TAB.CHEW PO (09:48)
[2023-12-18] MEDS: Atenolol 50 MG Tablet PO (09:48)
--- NOTE | 2023-12-18 09:59 | PCM.PN.HOSP ---
Reason for Visit Reason for Visit: Diagnoses Unspecified abnormalities of gait and mobility (12/16/23) Subjective Subjective Patient MRI of his spine was nondiagnostic. Case was discussed with teleneurology from [facility] for patient to be transferred to [facility] for EMG Objective Data Objective Data Vital Signs: Vital Signs Temp Pulse Resp BP Pulse Ox O2 Del Method 97.9 F 81 18 123/88 H 95 Room Air 12/18/23 09:46 12/18/23 09:46 12/18/23 09:46 12/18/23 09:46 12/18/23 09:46 12/18/23 09:46 Oxygen Delivery Method Room Air Weight: 76.8 kg Body Mass Index (BMI) 22.9 Intake & Output: Intake and Output for Last 24 Hours 12/16/23 12/17/23 12/18/23 23:59 23:59 23:59 Intake Total 1700 / 2500 1200 / 1200 Balance 1700 / 2500 1200 / 1200 Lab / Micro Data 12/16/23 12:10 12/17/23 06:50 Radiography Diagnostic Testing: Radiology Impression Echocardiogram 12/17/23 05:55 Interpretation Summary Normal LV size. Left ventricular systolic function is normal. The estimated ejection fraction is 60 %. Bubble contrast study negative for right to left interatrial shunt. Stage 1 diastolic dysfunction. Pulmonary artery systolic pressure is 23 mmHg. Ordering Physician: Richmond Lloyd Referring Physician: Gerard Penny Performed By: Evelin Laurent, RDCS, RVT Cervical Spine MRI 12/17/23 12:09 IMPRESSION: No evidence of demyelination. Multilevel neural foraminal narrowing as above. Electronically Signed: Jb Pack MD at 18:10 EDT Reading Location ID and State: [address] [place] [address] Tel , Service support , Lumbar Spine MRI 12/17/23 12:11 IMPRESSION: 1. Multilevel degenerative changes of the lumbar spine without foraminal narrowing and central acquired canal stenosis as described. 2. Multiple sacral Tarlov cysts. Electronically Signed: Esther James MD at 2:54 EDT , Thoracic Spine MRI 12/17/23 12:11 IMPRESSION: 1. No MRI evidence to suggest demyelinating process of the thoracic spinal cord. 2. No MR evidence to suggest cord or nerve impingement. 3. Multiple thoracic Tarlov cysts as described. 4. Right-sided renal mass could be neoplastic in etiology. Electronically Signed: Esther James MD at 3:00 EDT , Physical Exam Narrative GENERAL: cooperative HEENT: Atraumatic; normocephalic EYES; Anicteric, Normal Conjunctiva NECK; supple, normal thyroid, RESPIRATORY: Diminished to auscultation CARDIOVASCULAR: Regular S1 S2, GI: soft, normoactive bowel sounds, : No Renal angle tenderness; EXTREMITIES: No edema, no clubbing, MUSCULOSKELETAL: no muscle wasting NEURO: Awake; no lateralizing signs. SKIN: No Rash PSYCH; Flat affect Assessment & Plan Assessment/Plan (1) Abnormal gait: PLAN: Plan Patient is a 68-year-old gentleman who presented with difficulty with his gait. Per patient symptoms have been ongoing for months has gotten progressively worse however became more intense over the past 4-5 days. Admitted to monitored bed for further management 1. Gait instability ? Of unclear etiology. MRI and CT a of the head and neck obtained as part of his evaluation came back unremarkable. Requested for PT OT eval. Also requested for imaging of the spine to rule out demyelinating disease. As part of his management consult was placed to teleneuro ? 12/18/2023;Patient MRI of his spine was nondiagnostic. Case was discussed with teleneurology from [place] recommendation for patient to be transferred to [facility] for EMG 2. Hypertension - Blood pressure controlled, home medications continued with dose adjustment as needed 3. Vertigo ? Patient has apparently experienced intermittent vertigo in the past. As stated above MRI obtained was negative for posterior circulation CVA 4. DVT prophylaxis ? SC heparin Time spent in the patient's overall evaluation,decision-making process, review of diagnostic data, adjustment of management, discussion with other providers, nursing nursing and ancillary staff involved in patient's care documentation, 38 Minutes Charges/Coding Visit Charges Inpatient E&M: 91581 Subs Hosp L2
[2023-12-18 10:37] VITALS: O2SAT 95
--- NOTE | 2023-12-18 10:54 | CON.PCM.NE_ITS ---
Assessment and Plan: Neuro Assessment/Plan NASIM GAVIN is a 68 M being evaluated by Teleneurology for difficulty maintaining balance. MRI brain/C/T/L with no acute findings. He also denies vision issues, difficulty breathing, flu like illness, diarrhoea prior to development of his symptoms. Pertinent positive exam findings include hesitancy to walk without support and wide base gait,cannot walk without support. Overall suspicion for GBS is low however will like to get EMG/NCS to rule that out and may need CSF analysis depending on the findings. Please transfer the patient to [facility] for EMG/NCS and possible LP. Diagnosis: New onset gait abnormality Plan: Transfer to [facility] for EMG/NCS and possible LP. Transfer to [facility] for the following reasons: EMG/NCS I personally attended this patient and spent a total time of 60 minutes evaluating this patient including clinical assessment, review of chart, medical history imaging, and determining appropriate treatment and workup. Koki Hu MD [facility] TeleNeurology Department HPI Consult Data Date of Consult: 12/18/23 HPI Narrative HPI Narrative: NASIM GAVIN, is a 68 M who presents with gait abnormality. He was in his usual state of health until last Friday when he developed difficulty walking af ter working out from gym. He felt his knees are buckling up on him and have difficulty maintaining balance and has to use a walker since Last Friday. He denies double vision, diarrhoea, flu like symptoms prior to development of his systems . He also denies speech problem , difficulty breathing , numbness or tingling. [facility] Medical History HTN (hypertension) Vertigo Home Medications atenolol 50 mg tablet 50 mg PO DAILY htn 11/28/14 [History Last Taken 08/02/19] cwopmswo-vzo-qndjx acid 0.4 mg-lycopene 300 mcg-lutein 250 mcg tablet 1 ea PO DAILY supplement 07/21/19 [History Last Taken Unknown] Allergy/AdvReac Type Severity Reaction Status Date / Time No Known Allergies Allergy Verified 12/16/23 11:02 Family History Other Heart disease Myocardial infarction Surgical History History of knee replacement (~2019) Social History household members: spouse Smoking Status: Never smoker Vital Signs Vital Signs Vital Signs: 12/17/23 13:36 12/17/23 14:11 12/17/23 14:39 Temperature Temperature Source Pulse Rate 68 67 Pulse Strength Respiratory Rate 18 18 Respiratory Effort Normal Blood Pressure 119/69 111/61 Blood Pressure Mean 85 77 Blood Pressure Source Monitor Monitor Blood Pressure Position Supine Supine Blood Pressure Location Left Arm Left Arm Pulse Ox 92 94 Oxygen Delivery Method Room Air Room Air 12/17/23 15:02 12/17/23 15:18 12/17/23 15:41 Temperature Temperature Source Pulse Rate 68 66 67 Pulse Strength Respiratory Rate 18 18 18 Respiratory Effort Blood Pressure 99/59 L 97/55 L 97/63 Blood Pressure Mean 72 69 74 Blood Pressure Source Monitor Monitor Monitor Blood Pressure Position Supine Supine Supine Blood Pressure Location Left Arm Left Arm Left Arm Pulse Ox 95 92 92 Oxygen Delivery Method Room Air Room Air Room Air 12/17/23 16:00 12/17/23 20:28 12/18/23 05:16 Temperature 96.9 F L 97.6 F L 98.2 F Temperature Source Temporal Oral Oral Pulse Rate 60 65 65 Pulse Strength Respiratory Rate 16 18 18 Respiratory Effort Blood Pressure 113/79 121/77 H 114/75 Blood Pressure Mean 90 91 88 Blood Pressure Source Monitor Blood Pressure Position Semi-Fowlers Blood Pressure Location Right Arm Pulse Ox 94 95 97 Oxygen Delivery Method Room Air Room Air Room Air 12/18/23 07:39 12/18/23 07:39 12/18/23 07:57 Temperature Temperature Source Pulse Rate Pulse Strength Normal (2+) Respiratory Rate Respiratory Effort Blood Pressure Blood Pressure Mean Blood Pressure Source Blood Pressure Position Blood Pressure Location Pulse Ox 97 Oxygen Delivery Method Room Air Room Air 12/18/23 09:46 12/18/23 10:37 Temperature 97.9 F Temperature Source Oral Pulse Rate 81 Pulse Strength Respiratory Rate 18 Respiratory Effort Blood Pressure 123/88 H Blood Pressure Mean 99 Blood Pressure Source Monitor Blood Pressure Position Sitting Blood Pressure Location Right Arm Pulse Ox 95 95 Oxygen Delivery Method Room Air Weight Weight: 76.8 kg Body Mass Index (BMI) 22.9 EEG Results Procedure Details EEG Procedure Details: NASIM GAVIN is a 68 year old M with a past medical history of , who presents for evaluation of Electroencephalogram on DATE at TIME NIHSS NIHSS Nursing Documentation NIHSS Nursing Documentation: NIHSS: Ischemic Stroke/TIA Start: 12/16/23 18:06 Text: For PCU Patients: NIH and Neuro Check every 4 Status: Complete hours and PRN Freq: [id number] Protocol: Activity Type Activity Date Activity User E-sign Co-sign Detail Recorded Client Recorded Date Recorded By Document 12/16/23 18:17 MS Desktop 12/16/23 18:21 MS 12/16/23 18:17 NIH Stroke Scale [NIHSS] A score of 0 is normal or asymptomatic . Total possible score is 42. Inpatient: RN or Physician to activate a stroke alert for onset of new stroke symptoms or with NIHSS increase >/= 3 points. Following change in neurological status, NIHSS will be performed per physician order or more frequently PRN. -1a. Level of Consciousness Alert; keenly responsive -1b. LOC Questions Answers BOTH questions correctly. -1c. LOC Commands Performs both tasks correctly . -2. Best Gaze Normal -3. Visual No visual loss -4. Facial Palsy Normal symmetrical movements -5a. Left Arm No drift; arm holds 90 (or 45 ) degrees for full 10 seconds -5b. Right Arm No drift; arm holds 90 (or 45 ) degrees for full 10 seconds -6a. Left Leg No drift; leg holds 30-degree position for full 5 seconds -6b. Right Leg No drift; leg holds 30-degree position for full 5 seconds -7. Limb Ataxia Absent -8. Sensory Normal; no sensory loss -9. Best Language No aphasia; normal -10. Dysarthria Normal -11. Extinction and Inattention No abnormality -Total 0 Query Text:A score of 0 is normal or asymptomatic. Total possible score is 42 . ED: Notify Physician for NIHSS increase by > / = 3 points. Inpatient: RN or Physician to activate a stroke alert for NIHSS increase of > / = 3 points. Coma Scale [Assess] -Eye Opening Spontaneous -Motor Obeys Commands -Verbal Oriented [Total] -Coma Scale Total 15 Physical Exam Neuro Neuro Narrative: -? General: Laying comfortably in bed; in no acute distress. -? HENT: Normal oropharynx and mucosa. Normal external appearance of ears and nose. Exophthalmos. -? Neck: Supple, no pain or tenderness -? CV:? No peripheral edema. -? Pulmonary:? Normal respiratory effort. -? Ext: No cyanosis, edema, or deformity -? Skin: No rash. Normal palpation of skin.? -? Musculoskeletal: full range of motion; no joint tenderness. Normal digits and nails by inspection. No clubbing. -? NEURO: -? Mental Status: The patient was alert and oriented to time, place, and person. Normal recent/remote memory, concentration, and general fund of knowledge. -? Language: speech is fluent.? Naming, repetition, fluency, and comprehension intact. -? Cranial Nerves: PERRL 3mm mm/brisk. EOMI, visual murguia full, no facial asymmetry, facial sensation intact, hearing intact, tongue midline, no evidence of atrophy or fibrillations. As performed by the nurse Sternocleidomastoid and trapezius were equally strong. Soft palate raises equally, no uvular deviations -? Motor: normal bulk, tone, and strength throughout. No pronator drift or satelliting. Upper and lower extremities equal bilaterally. R L -? Tone: is normal and bulk is normal -? Sensation- Intact to light touch bilaterally -? Coordination: No dysmetria on brgamx-dgue-rbwxqa, finger follow finger or [id number]-bmmk-bkmr. -? Gait- Gait was wide base ,slow and he was hesitant to take few steps without support. Lab / Micro Data 12/16/23 12:10 12/17/23 06:50 Imaging Radiology Impression Echocardiogram 12/17/23 05:55 Interpretation Summary Normal LV size. Left ventricular systolic function is normal. The estimated ejection fraction is 60 %. Bubble contrast study negative for right to left interatrial shunt. Stage 1 diastolic dysfunction. Pulmonary artery systolic pressure is 23 mmHg. Ordering Physician: Richmond Lloyd Referring Physician: Gerard Penny Performed By: Evelin Laurent, JAYLACS, RVT Cervical Spine MRI 12/17/23 12:09 IMPRESSION: No evidence of demyelination. Multilevel neural foraminal narrowing as above. Electronically Signed: Jb Pack MD at 18:10 EDT Reading Location ID and State: [address] [place] [address] Tel , Service support , Lumbar Spine MRI 12/17/23 12:11 IMPRESSION: 1. Multilevel degenerative changes of the lumbar spine without foraminal narrowing and central acquired canal stenosis as described. 2. Multiple sacral Tarlov cysts. Electronically Signed: Esther James MD at 2:54 EDT , Thoracic Spine MRI 12/17/23 12:11 IMPRESSION: 1. No MRI evidence to suggest demyelinating process of the thoracic spinal cord. 2. No MR evidence to suggest cord or nerve impingement. 3. Multiple thoracic Tarlov cysts as described. 4. Right-sided renal mass could be neoplastic in etiology. Electronically Signed: Esther James MD at 3:00 EDT , Active Medications Active Medications Active Medications: Current Medications Generic Name Dose Route Start Last Admin Trade Name Freq PRN Reason Stop Dose Admin Acetaminophen 650 mg 12/16/23 18:06 12/17/23 09:26 Acetaminophen 325 Mg Tablet PO 650 mg Q4H PRN PRN Administration Pain 1-10 Or Fever>99.6 Aspirin 81 mg 12/16/23 18:06 12/18/23 09:48 Aspirin 81 Mg Tab.Chew PO 81 mg BREAKFAST CHELSIE Administration Atenolol 50 mg 12/17/23 10:00 12/18/23 09:48 Atenolol 50 Mg Tablet PO 50 mg DAILY CHELSIE Administration Protocol Atorvastatin Calcium 80 mg 12/16/23 22:00 12/17/23 22:42 Atorvastatin Calcium 80 Mg Tablet PO Not Given QHS CHELSIE Heparin Sodium (Porcine) 5,000 unit 12/16/23 22:00 12/18/23 07:08 Heparin Injection (Vial) 5,000 Unit/Ml Vial SC Not Given Q8 CHELSIE Hydralazine HCl 5 mg 12/16/23 18:06 Hydralazine 20 Mg/Ml Vial IV Q30M PRN to maintain BP goals Labetalol HCl 10 - 20 mg 12/16/23 18:06 Labetalol (Prefilled) 20 Mg/4 Ml IV Q10M PRN PRN to Maintain BP Goals Melatonin 3 mg 12/17/23 22:00 12/17/23 22:38 Melatonin 3 Mg Tablet PO 3 mg QHS CHELSIE Administration Sodium Chloride 10 - 40 ml 12/16/23 17:28 12/17/23 13:32 0.9% Saline Lock 10 Ml Syringe IV 10 ml UD PRN Administration SALINE FLUSH
--- NOTE | 2023-12-18 11:52 | DS.PCM_ITS ---
Providers Date of Admission: 12/16/23 Date of Discharge: 12/18/23 Primary Care Physician: Dr. Gerard Penny MD Consultations 12/17/23 11:12 Consult: Tele-Neurology Routine Consulting Provider: [facility] Reason for Consult: Gait abnormality EMERGENT Consult: No MD Notified: Yes Date Notified: 12/17/23 Time Notified: 11:12 Method of Notification: Answering Service Nursing Unit Staff Notify [facility] of Tele-Neurology Consult: Yes Reason For Visit: GAIT ABNORMALITY Diagnosis Discharge Diagnosis (1) Abnormal gait: Status: Acute Code(s): R26.9 - Unspecified abnormalities of gait and mobility Plan Patient is a 68-year-old gentleman who presented with difficulty with his gait. Per patient symptoms have been ongoing for months has gotten progressively worse however became more intense over the past 4-5 days. Admitted to monitored bed for further management 1. Gait instability ? Of unclear etiology. MRI and CT a of the head and neck obtained as part of his evaluation came back unremarkable. Requested for PT OT eval. Also requested for imaging of the spine to rule out demyelinating disease. As part of his management consult was placed to teleneuro ? 12/18/2023;Patient MRI of his spine was nondiagnostic. Case was discussed with teleneurology from [facility] for patient to be transferred to [facility] for EMG 2. Hypertension - Blood pressure controlled, home medications continued with dose adjustment as needed 3. Vertigo ? Patient has apparently experienced intermittent vertigo in the past. As st ated above MRI obtained was negative for posterior circulation CVA 4. DVT prophylaxis ? SC heparin Time spent in the patient's overall evaluation,decision-making process, review of diagnostic data, adjustment of management, discussion with other providers, nursing nursing and ancillary staff involved in patient's care documentation, 38 Minutes Medications at Discharge Home Medications atenolol 50 mg tablet 50 mg PO DAILY htn 11/28/14 xmpgtupf-bbc-vypwp acid 0.4 mg-lycopene 300 mcg-lutein 250 mcg tablet 1 ea PO DAILY supplement 07/21/19 Physical Exam Narrative GENERAL: cooperative HEENT: Atraumatic; normocephalic EYES; Anicteric, Normal Conjunctiva NECK; supple, normal thyroid, RESPIRATORY: Diminished to auscultation CARDIOVASCULAR: Regular S1 S2, GI: soft, normoactive bowel sounds, : No Renal angle tenderness; EXTREMITIES: No edema, no clubbing, MUSCULOSKELETAL: no muscle wasting NEURO: Awake; no lateralizing signs. SKIN: No Rash PSYCH; Flat affect Weight / BMI Weight Weight: 76.8 kg Body Mass Index (BMI) 22.9 ABG / Lab / Microbiology Data 12/16/23 12:10 12/17/23 06:50 Radiography Diagnostic Testing: Radiology Impression Echocardiogram 12/17/23 05:55 Interpretation Summary Normal LV size. Left ventricular systolic function is normal. The estimated ejection fraction is 60 %. Bubble contrast study negative for right to left interatrial shunt. Stage 1 diastolic dysfunction. Pulmonary artery systolic pressure is 23 mmHg. Ordering Physician: Richmond Lloyd Referring Physician: Gerard Penny Performed By: Evelin Laurent, RDCS, RVT Cervical Spine MRI 12/17/23 12:09 IMPRESSION: No evidence of demyelination. Multilevel neural foraminal narrowing as above. Electronically Signed: Jb Pack MD at 18:10 EDT Reading Location ID and State: [address] [place] [address] Tel , Service support , Lumbar Spine MRI 12/17/23 12:11 IMPRESSION: 1. Multilevel degenerative changes of the lumbar spine without foraminal narrowing and central acquired canal stenosis as described. 2. Multiple sacral Tarlov cysts. Electronically Signed: Esther James MD at 2:54 EDT Reading Location ID and State: [facility] / [place] , Service support , Thoracic Spine MRI 12/17/23 12:11 IMPRESSION: 1. No MRI evidence to suggest demyelinating process of the thoracic spinal cord. 2. No MR evidence to suggest cord or nerve impingement. 3. Multiple thoracic Tarlov cysts as described. 4. Right-sided renal mass could be neoplastic in etiology. Electronically Signed: Esther James MD at 3:00 EDT Reading Location ID and State: [facility] , Service support , D/C Instructions Discharge Diet: No restrictions Discharge Activity: Return to Normal Activity Call your doctor if you observe: Fever of 101 or Higher, Shortness of breath, Fainting spells and Chest pain Meaningful Use Info Meaningful Use Diagnoses (Choose all that apply): None applicable Discharge Plan Admission Admit Date/Time: 12/16/23 14:30 Attending Provider: Maxi Soni Primary Care Provider: Gerard Penny Consulting Providers: Richmond Lloyd; Jaziel Waldron; Maggie Shell; Anette Gross; Latonia Hinton; Elyssa Davis; Ankush Lockhart; Lupe Stanley; Kermit Lauren; Sudhakar Keller; Stacey Rachel; Mick Garza; Koki Hu; Ulisses Wong; Sarah Lockhart; Darius Barrientos; Neymar Isaac; Billy Kline; Dagmar Do; Shanel Rascon Discharge Orders/Prescriptions Prescriptions: No Action atenolol 50 MG tablet 50 mg PO DAILY Patient Comments: blood pressure yzduogxs-hvj-IS-lycopen-lutein 1 EACH tablet 1 ea PO DAILY Referrals / Follow Up: Gerard Penny MD [Primary Care Provider] - Disposition Disposition (needs filled in before D/C Order can be placed): Acute Care Hospital Charges/Coding Visit Charges Inpatient E&M: 28829 Disch Hosp >30min
[2023-12-18 15:45] VITALS: BP 134/82; PULSE 57; RESP 18; TEMP 36.6; O2SAT 94
[2023-12-18 21:09] VITALS: BP 139/74; PULSE 55; RESP 14; TEMP 36.6; O2SAT 94
[2023-12-18] MEDS: Heparin Injection (Vial) 5,000 UNIT/ML VIAL 5000 UNIT SC (21:13)
--- NOTE | 2023-12-18 21:43 | NURSING ---
attempted to call [facility] for report x2, no answer.
--- NOTE | 2023-12-18 22:39 | NURSING ---
report called to [facility] ARNOLDO Ratliff
== END 2023-12-18 22:10 | disposition short-term general hospital (02) | DRG 93 ==
LOC: ED 15:01 → PCU 16:45
PROVIDERS: Admitting Provider Internal Medicine; Emergency Provider Emergency Medicine; PCP Family Medicine; Visit Provider Internal Medicine
DX: R26.9 Unspecified abnormalities of gait and mobility (principal); I10 Essential (primary) hypertension; R42 Dizziness and giddiness; Z79.899 Other long term (current) drug therapy
CPT/HCPCS: 36415; 70496; 70498; 70551; 71045; 72141; 72146; 72148; 80048; 80061; 83735; 84443; 84484; 85025; 85610; 85730; 93005; 93306; 97162; 97166; 99285; J7030; Q9967; A4216; C8929

== ENCOUNTER 2024-02-27 15:00 | Outpatient (RCR) | payer MEDICARE, BC, SELFPAY ==
--- NOTE | 2023-12-24 16:14 | HP.PTEVAL ---
Patient's Visit Information Visit Information Visit Information: NASIM GAVIN is a 68 year old M referred to Physical Therapy by HERIBERTO MCKINNEY with a diagnosis of L leg weakness and unsteady gait. Date of Evaluation: 12/24/23 Physical Therapist: Sean Hall DPT Visit Plan Frequency: 2x /Week Duration: 6 Weeks Plan: -gait with cane and no AD (for distance, working on normalized pattern without locking L knee) use gait belt to begin with -quad and hip strengthening (stairs difficult, work on step downs and eccentric quad control...may need to increase guarding until pt feels comfortable) could trial Angolan e-stim but pt pretty good at quad activation -dynamic balance (work towards SLS on LLE) Pt has mild weakness of L side, greatest limitation is hesitation and fear of falling/L knee buckling. Main focus should be on walking and building confidence using cane or no device (no AD end goal). Pt has high PLOF and wants to get back to biking and working out, challenge appropriately (HEP: TKE, STS, GTB S/L ABD, GTB SLR, ) Subjective Subjective: Pt presents to PT with LLE weakness which began a few weeks ago. Pt did a hard leg workout at the gym, went home and did yardwork and then later that night felt his L knee kept giving out. Went to ortho and had x-rays and found no issues in knee (which has been replaced). Pt has had multiple head, back, and leg CT and MRI which showed no abnormalities. Pt feels LLE gets fatigued quickly and has some soreness behind L thigh. Denies any neurological issues and no hx of falls. Denies any B&B changes or N/T. 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 Pt has stairs to basement, is currently going down steps scooting on his butt, but can walk back up cautiously. GOALS: walk without walker, navigate stairs with no UE support, get back to working out, biking. Pain Left Knee: Pain Intensity (Out of 10): 1 Pain Intensity Range: 1 and 3 Objective Objective: ROM: hip WNL, knee WNL MMT: L - knee ext 4/5, knee flex 4+/5, DF 5/5, PF 4+/5, hip flex 4/5, hip ext 4/5, hip ABD 4/5 R - knee ext 4+/5, knee flex 4+/5, DF 5/5, PF 4+/5, hip flex 4+/5, hip ext 4/5, hip ABD 4+/5 PALPATION: no tenderness found NEURO: dull sensation right over L knee (L4 dermatome) SLUMP: (-) FEMORAL NERVE TENSION: (-) SACRAL SPRING: (-) NEURO: reflexes intact, no clonus GAIT: normalized with FWW, cautious with decreased stance time on LLE using SPC, pt had once instance of catching L toe on ground d/t poor foot clearance and hesitation walking with more restrictive AD STS: heavy reliance on RLE, felt unsteady unless had object to hang on to in front of him Pt had a few instances of L knee giving out after heavy use, which may have been due to fatigue, all other neuro conditions have been ruled out with imaging. Pt appears to have sufficient strength and has high PLOF, but is severely limited with balance and gait mechanics d/t fear of falling and apprehension to L knee buckling. Balance/Special Test Scores Lower Extremity Functional Score: 36 Goals Goal 1:: Pt will demonstrate symmetrical LE strength Goal Time Frame: 2-4 Weeks Goal 2:: Pt will amb. >300ft with no AD Goal Time Frame: 4-6 Weeks Goal 3:: Pt will navigate steps with reciprocal pattern and no HR use Goal Time Frame: 4-6 Weeks Goal 4:: Pt will perform STS with no UE use and equal WB Goal Time Frame: 4-6 Weeks Goal 5:: Pt will be able to squat down and excelsior picker object with no AD and no LOB Goal Time Frame: 4-6 Weeks Rehabilitation Potential Physical Therapy Diagnosis: Pt presents to PT with mild LLE weakness and difficulty with gait. Pt would benefit from skilled PT services to address pt LE strength, balance, and confidence with gait using LRD. Rehabilitation Potential: Excellent Anticipated Interventions Patient/Client Instruction: Educate patient on: Condition and Plan of Care For the Purpose of:: To improve muscle performance and motor function, To improve ability to perform ADL's, To increase tolerance to activity/condition/position, To improve performance and independence with ADL's, To decrease level of supervision to perform tasks, To improve ability of physical actions for home/community/work/leisure, To improve gait and locomotor functions, To improve endurance, To improve balance, To improve safety with gait, To assume or resume ADL's, To reduce risk of recurrence, To improve safety, To improve health and function, To prevent re-injury, To improve ability to perform tasks related to life management and To improve tolerance to ADL's Therapeutic Exercise to Include: Strength training, Endurance training, Balance training, Coordination, Agility training, Body mechanics, Postural training, Gait and locomotor training and Neuromotor development For the Purpose of:: To improve muscle performance and motor function, To increase tolerance to activity/condition/position, To improve performance and independence with ADL's, To decrease level of supervision to perform tasks, To improve ability of physical actions for home/community/work/leisure, To improve endurance, To improve balance, To improve safety with gait, To assume or resume ADL's, To reduce risk of recurrence, To improve safety, To improve health and function, To foster healthy habits, To improve self management, To prevent re-injury, To improve ability to perform tasks related to life management and To improve tolerance to ADL's Assistive Devices: Cane For the Purpose of:: To improve safety with gait Functional electric stimulation: Yes TENS: Yes Cryotherapy (ice pack, ice massage): Yes Vasopneumatic device: Yes For the Purpose of:: To decrease pain, To decrease swelling/inflammation and To improve tolerance to ADL's Text: Thank you for the opportunity to evaluate your patient. For Medicare and Medicare HMO plans, please review the plan of care and approve it. It will need to be FAXED BACK to us at [phone] for Medicare purposes. For Medicare only, by signing this I certify the plan of care. Please let me know if there are questions or concerns regarding this plan of care. Physician Signature: Date:
--- NOTE | 2024-02-03 16:02 | HP.PTREVAL ---
Re-Evaluation Intro: HERIBERTO MCKINNEY, It has been my pleasure to treat NASIM GAVIN over the last 12 visits for L leg weakness and unsteady gait. Please see the progress note below for an update on the physical therapy plan of care! Subjective Subjective: Pt. reports overall doing much better than previously. He arrives without use of a cane. Pt. reports going to gym x3 per week focusing on LE strengthening and bike riding. Pt. reports he would like to get back to riding his back out in community. Pt. denies N/T, and that his strength is improving. He is no longer using a cane. Objective Objective/Function: ROM: Pt. has great ROM of LLE without symptoms. MMT: Pt. has much improved LLE strength. LLE: ankle DF 23#, PF 54#; knee: ext 54.1#, flexion 36.3#; HIP: flexion 23.3#, abd 19.9#. RLE: ankle DF 21#, PF 25#; Knee: ext 53.8#, flexion 31.9#; HIP: flexion 28.3#, abd 21.1#. GAIT: Pt. no longer uses cane with gait. He does have some instability of his L knee during stance phase, tends to hyper extend. He has difficulty controlling. STAIRS: difficulty with controlled eccentric lowering during L stance phase. He has good mid range strength, but difficulty with end range strength and stability. I would recommend working on motor control in this range to prevent hyper extension. Plan Plan Plan: Work on stability exercises and balance ie.. lunging and pushing off, control TKE movements avoiding using hyper extension to stabilize. Pt. is doing to gym x3 days per week to focus on further strengthening independently. Balance/Gait/Functional tests Balance/Special Test Scores Lower Extremity Functional Score: 36 6 Minute Walk Test: 339.55 meters (60% normative range) Goals Goals Goal 1:: Pt will demonstrate symmetrical LE strength Goal Time Frame: 2-4 Weeks Goal Progress: Goal Met Goal 2:: Pt will amb. >300ft with no AD Goal Time Frame: 4-6 Weeks Goal Progress: Goal Met Goal 3:: Pt will navigate steps with reciprocal pattern and no HR use Goal Time Frame: 4-6 Weeks Goal 4:: Pt will perform STS with no UE use and equal WB Goal Time Frame: 4-6 Weeks Goal Progress: Progressing Goal 5:: Pt will be able to squat down and continuous pickling line pickler object with no AD and no LOB Goal Time Frame: 4-6 Weeks Goal Progress: Progressing Goal 6:: LTG: pt. to ambulate without L LE hyperextension during stance phase. Goal Time Frame: 4-6 Weeks Goal Progress: Progressing Anticipated Interventions Anticipated Interventions Patient/Client Instruction: Educate patient on: Condition and Plan of Care For the Purpose of:: To improve muscle performance and motor function, To improve ability to perform ADL's, To increase tolerance to activity/condition/position, To improve performance and independence with ADL's, To decrease level of supervision to perform tasks, To improve ability of physical actions for home/community/work/leisure, To improve gait and locomotor functions, To improve endurance, To improve balance, To improve safety with gait, To assume or resume ADL's, To reduce risk of recurrence, To improve safety, To improve health and function, To prevent re-injury, To improve ability to perform tasks related to life management and To improve tolerance to ADL's Therapeutic Exercise to Include: Strength training, Endurance training, Balance training, Coordination, Agility training, Body mechanics, Postural training, Gait and locomotor training and Neuromotor development For the Purpose of:: To improve muscle performance and motor function, To increase tolerance to activity/condition/position, To improve performance and independence with ADL's, To decrease level of supervision to perform tasks, To improve ability of physical actions for home/community/work/leisure, To improve endurance, To improve balance, To improve safety with gait, To assume or resume ADL's, To reduce risk of recurrence, To improve safety, To improve health and function, To foster healthy habits, To improve self management, To prevent re-injury, To improve ability to perform tasks related to life management and To improve tolerance to ADL's Assistive Devices: Cane For the Purpose of:: To improve safety with gait Functional electric stimulation: Yes TENS: Yes Cryotherapy (ice pack, ice massage): Yes Vasopneumatic device: Yes For the Purpose of:: To decrease pain, To decrease swelling/inflammation and To improve tolerance to ADL's Re-Evaluation Ending Re-evaluation ending: Please do not hesitate to contact me at [phone] by phone or if you have questions or concerns regarding this new plan of care! Sincerely, KAMERON ManT
== END 2024-02-27 19:00 | disposition home or self-care (01) ==
LOC: PT 15:00
PROVIDERS: PCP Family Medicine
DX: R29.898 Other symptoms and signs involving the musculoskeletal system (principal); R26.81 Unsteadiness on feet
CPT/HCPCS: 97110; 97161; 97530

== ENCOUNTER 2025-07-04 14:07 | Emergency (ER) | payer MEDICARE, BC, SELFPAY ==
[2025-07-04 14:08] VITALS: BP 149/74; PULSE 64; RESP 18; TEMP 35.8; O2SAT 94
--- NOTE | 2025-07-04 14:23 | RAD_ITS ---
PROCEDURE: KNEE 4 OR MORE VIEWS 07/04/2025 REASON FOR EXAM: UNABLE TO BEAR WEIGHT, PAIN TECHNIQUE: Procedure Code: RADKN Modality: DX Procedure: KNEE 4 OR MORE VIEWS Laterality: Right knee COMPARISON: None FINDINGS: Bones: No fracture. No suspicious bone lesion. Joints: Chondrocalcinosis of the lateral meniscus and mild degree of chondrocalcinosis involving the patellofemoral joint in the medial compartment of the knee joint. This is in keeping with the pseudogout. Effusion: No effusion. Soft tissues: Soft tissues are unremarkable. Other: RAD/Knee 4 or More Views IMPRESSION: NO EFFUSION ACUTE FRACTURE OR DISLOCATION. Reading Location: [place] [id number]
[2025-07-04 14:57] VITALS: BMI 22.4
--- NOTE | 2025-07-04 15:29 | EX.ED.DYSGE1 ---
HPI History of Present Illness Chief Complaint: Lower Extremity Injury Narrative Narrative: Chief complaint and HPI: 70-year-old male with past medical history of HTN presents for evaluation of right thigh pain after a fall. Patient states he was stepping off the bottom rung of a ladder when he lost his balance and fell onto his right buttocks. States the incident happened at approximately 1:30 PM. Patient states since the fall he has had pain in his right thigh that makes it difficult to ambulate. He denies any weakness, numbness, tingling. Did not his head. No LOC. Not on blood thinners. Review of systems: See HPI Medications: As listed on the chart Allergies: As listed on the chart PFSH: Per chart Vital signs: As listed on the chart. Reviewed. Physical exam: Gen: A&O x3, NAD Head: Normocephalic, atraumatic Eyes: No sclera icterus, conjunctiva clear ENT: Moist mucous membranes, atraumatic Neck: Trachea midline, full range of motion CV: RRR, no murmurs Resp: Lungs CTA BL, no w/r/c GI: Abd soft, non-distended, non-tender, no r/r/g Musc: Full ROM of all the extremities including the right lower extremity with full flexion and extension-with movement patient endorses pain in the muscles of the right thigh and hip-his thigh muscles are twitching involuntarily, no swelling or ecchymosis in the right lower extremity, no knee instability or tenderness, compartments soft, DP/PT pulses +2 bilaterally, sensation intact, good capillary refill, no deformity, no midline spinal tenderness or tenderness of the back, no bony step-offs Skin: Warm, dry, intact Neuro: Alert, oriented, grossly intact, sensation intact, GCS 15 Psych: Cooperative, appropriate mood and affect [facility] Medical History (Updated 07/04/25 @ 17:[address] Stevo Plata, DO) Kidney mass Vertigo HTN (hypertension) Home Medications ?Medication ?Instructions ?Recorded ?Last Taken ?Type atenolol 50 mg tablet 50 mg PO DAILY htn 11/28/14 08/02/19 History gbvtfrrp-udy-jmzjh acid 0.4 1 ea PO DAILY supplement 07/21/19 Unknown History mg-lycopene 300 mcg-lutein 250 mcg tablet cyclobenzaprine 5 mg tablet 5 mg PO TID PRN muscle spasm 3 07/04/25 Unknown Rx days #9 tabs Allergy/AdvReac Type Severity Reaction Status Date / Time No Known Allergies Allergy Verified 07/04/25 14:08 Family History Other Heart disease Myocardial infarction Surgical History History of knee replacement (~2019) Social History household members: spouse Smoking Status: Never smoker EXAM Physical Exam Const Vital Signs: 07/04/25 14:08 07/04/25 16:57 Temperature 96.4 F L 97.8 F Temperature Source Temporal Pulse Rate 64 80 Respiratory Rate 18 16 Blood Pressure 149/74 H 142/79 H Blood Pressure Mean 99 100 Pulse Ox 94 99 Oxygen Delivery Method Room Air MDM MDM MDM Narrative Medical decision making narrative: 70-year-old male with past medical history of HTN presents for evaluation of right thigh pain after a fall. Patient states he was stepping off the bottom rung of a ladder when he lost his balance and fell onto his right buttocks. States the incident happened at approximately 1:30 PM. Patient states since the fall he has had pain in his right thigh that makes it difficult to ambulate. He denies any weakness, numbness, tingling. Did not his head. No LOC. Not on blood thinners. See physical exam findings. Given that patient has involuntary twitching of the right thigh muscles I suspect this is more of a myofascial spasm versus contusion. However fracture in the differential. Patient had an x-ray of the knee obtained in triage. This resulted by the time I saw the patient. X-ray of the knee without any obvious fracture or dislocation. Radiology in agreement. Per radiology there is findings of pseudogout in the knee. This does not correlate with patient's HPI or physical exam. Will obtain x-ray of the hip to assess for fracture. Flexeril given for muscle relaxer. X-ray of the hip and pelvis were personally viewed interpreted by me, ED physician. No fracture or dislocation. On reevaluation patient is still having some muscle spasm however it is improved. He was able to ambulate in the department. Follow-up with primary care physician. Given education on RICE therapy. Motrin and Tylenol as needed for pain. IcyHot and heating pad as needed. Muscle relaxers as needed. He confirmed understand the plan. Return precautions explained. Impression: 1. Mechanical fall 2. Right thigh contusion 3. Right thigh spasm Radiography Diagnostic Testing: Clinical Impression(s) from Imaging Studies Knee X-Ray 07/04/25 14:23 IMPRESSION: NO EFFUSION ACUTE FRACTURE OR DISLOCATION. Reading Location: [id number] Hip/Pelvis X-Ray 07/04/25 15:30 IMPRESSION: No obvious displaced fractures are seen. Please note however that a subtle or occult fractures can be missed on x-rays. If a fracture is of high clinical concern, CT examination is recommended to exclude an occult fracture. Reading Location: [facility] Discharge Plan Triage Chief Complaint: Lower Extremity Injury ED Provider: Stevo Plata Dx/Rx/DC Orders Clinical Impression: Muscle spasm, Contusion of right thigh Instructions: ED Soft Tissue Contusion, ED Muscle Spasm Prescriptions: New cyclobenzaprine 5 mg tablet 5 mg PO TID PRN (Reason: muscle spasm) 3 Days Qty: 9 0RF No Action atenolol 50 MG tablet 50 mg PO DAILY Patient Comments: blood pressure indxlkun-wqi-FP-lycopen-lutein 1 EACH tablet 1 ea PO DAILY Primary Care Provider: Gerard Penny Referrals: Gerard Penny MD [Primary Care Provider, Family Practice] - 3-5 Days Activity Restrictions/Additional Instructions: There is follow-up with primary care physician. Return back to ED if symptoms change or worsen. Muscle relaxers as needed. Gentle stretching. Rest. Heating pad and IcyHot as needed. Motrin and Tylenol as needed for pain. Muscle relaxers can increase falls, confusion, weakness, fatigue. Do not drive or operate heavy machinery when taking these. Print Language: [place]an Disposition Disposition: Home, Self Care
--- NOTE | 2025-07-04 15:30 | RAD_ITS ---
PROCEDURE: HIP, UNI W/ PELVIS 2-3 VIEWS 07/04/2025 REASON FOR EXAM: PAIN. Patient fell off ladder today. TECHNIQUE: Procedure Code: RAD Modality: DX Procedure: HIP, UNI W/ PELVIS 2-3 VIEWS Laterality: Right COMPARISON: None FINDINGS: Bones: There is normal mineralization of the osseous structures of the bony pelvis and both hips. No obvious displaced fracture is seen. There are no dislocations. Degenerative changes of the lower lumbar spine are noted. Joints: Both hip joints appear to be well preserved. SI joints are unremarkable. Pubic symphysis is unremarkable. Soft tissues: Soft tissue swelling of the right hip region is noted. Other: Phleboliths are seen in the pelvis. RAD/HIP, UNI W/ Pelvis 2-3 Views IMPRESSION: No obvious displaced fractures are seen. Please note however that a subtle or occult fractures can be missed on x-rays. If a fracture is of high clinical concern, CT examination is recommended to exclude an occult fracture. Reading Location: [id number]
[2025-07-04 16:57] VITALS: BP 142/79; PULSE 80; RESP 16; TEMP 36.6; O2SAT 99
== END 2025-07-04 17:14 | disposition home or self-care (01) ==
PROVIDERS: Emergency Provider Surgery; PCP Family Medicine; Visit Provider Surgery
DX: S70.11XA Contusion of right thigh, initial encounter (principal); I10 Essential (primary) hypertension; M62.838 Other muscle spasm; Z79.899 Other long term (current) drug therapy; W11.XXXA Fall on and from ladder, initial encounter
CPT/HCPCS: 73502; 73564; 99282